=== PATIENT | female | born 1965 | race Caucasian/White ===

== ENCOUNTER → 2020-06-26 11:51 | Outpatient (BNVA) | payer SELFPAY | PROVIDERS: Family Provider Nurse Practitioner; PCP Nurse Practitioner; Visit Provider Nurse Practitioner | DX: I10 Essential (primary) hypertension (principal); J43.9 Emphysema, unspecified | CPT/HCPCS: 80053; 84443; 85025 ==

== ENCOUNTER → 2020-06-27 09:29 | Outpatient (BNVA) | payer SELFPAY | PROVIDERS: Family Provider Nurse Practitioner; PCP Nurse Practitioner; Visit Provider Nurse Practitioner | DX: R73.9 Hyperglycemia, unspecified (principal) | CPT/HCPCS: 83036 ==

== ENCOUNTER → 2020-07-02 10:24 | Outpatient (BNVA) | payer SELFPAY | PROVIDERS: Family Provider Nurse Practitioner; PCP Nurse Practitioner; Visit Provider Nurse Practitioner | DX: I10 Essential (primary) hypertension (principal); M25.551 Pain in right hip; M25.552 Pain in left hip; M54.5 Low back pain | CPT/HCPCS: 72100; 73523 ==

== ENCOUNTER 2020-10-08 11:34 | Inpatient (IN) | payer MEDICAID, SELFPAY ==
[2020-10-08] VITALS (15 sets, daily range): BP systolic 124–168; BP diastolic 78–100; PULSE 77–110; RESP 20–24; TEMP 36.4–37.3; O2SAT 86–94; BMI 40.6; BMI 40.8
--- NOTE | 2020-10-08 11:38 | W.ED.SOB ---
HPI - SOB/Dyspnea General: Chief Complaint: COVID symptoms Stated Complaint: POSSIBLE COVID/ SOB Time Seen by Provider: 10/08/20 11:37 History of Present Illness: HPI Narrative: Ms. Lawler is a 55-year-old lady with significant past medical history of diabetes, COPD, hypertension, hyperlipidemia who presents to the emergency department due to hypoxemia. Symptom onset was a few weeks ago gradual however she has recently experienced subacute worsening. She endorses generalized malaise, dry cough, shortness of breath, muscle aches, nausea but no vomiting, and generalized malaise. Her symptoms are worse with exertion but do not go with rest. She was seen at a clinic today however they called 911 because her oxygen saturation was 67% on room air. She denies prior oxygen use. She has a history of smoking but denies current smoking. Overall the course of symptoms has been worsening. The intensity is moderate to severe. She is not vaccinated against Covid. Home nebulizer treatments have not helped. No other new significant changes in health, exacerbating, or relieving factors identified. Review of Systems General: Reports: 10 or more systems reviewed and unremarkable except in HPI and below Narrative: CONSTITUTIONAL: See HPI EYES - denies pain, denies loss of vision NOSE - denies congestion or rhinorrhea. THROAT - denies sore throat or difficulty swallowing. CARDIOVASCULAR -see HPI RESPIRATORY -see HPI GASTROINTESTINAL - denies abdominal pain. See HPI GENITOURINARY - denies dysuria or urinary frequency MUSCULOSKELETAL- denies deformity. See HPI SKIN - denies rashes or new changed skin lesions NEUROLOGIC - denies focal weakness or sensory changes HEMATOLOGIC/LYMPHATIC - denies easy bruising or lymphadenopathy. PFS ED PFSH: Medical History COPD (chronic obstructive pulmonary disease) History of nicotine use Hyperlipemia, mixed Hypertension Surgical History History of hysterectomy Family History Other Diabetes Hypertension Denies family history of Cancer Stroke Social History Smoking and tobacco status: former smoker Second hand smoke exposure: No Smoking risk assessment/counseling performed?: No Alcohol intake: current Alcohol intake frequency: holidays/special occasions only Desire information about alcohol rehabilitation?: No Counseling given: No Desire information about substance/drug rehabilitation?: No Counseling given: No Adopted: No Caregiver/support person: No Lives independently: Yes Household members: spouse Housing: Manufactured/Mobile home Marital status: Number of children: 5 service: No Current occupational status: unemployed History of recent travel: No Current gender identity: Female Physical Exam Narrative: EXAM NARRATIVE: GENERAL/CONSTITUTIONAL -ill-appearing. No acute distress. Supplemental oxygen in place via mask Eyes - PERRL, no conjunctival injection ENMT - Atraumatic external nose and ears. Dry mucous membranes NECK - supple. trachea midline CARDIOVASCULAR - regular rate and rhythm. Peripheral pulses 2+ and equal RESPIRATORY -coarse breath sounds throughout with increased mild accessory muscle use. ABDOMEN/GI - Nontender, nondistended. No tenderness to percussion or evidence of peritonitis MSK - Extremities without obvious deformity or tenderness to palpation SKIN - Warm, Dry NEURO - alert and appropriately oriented. strength and sensation intact. Moves all extremities equally. PSYCH - Appropriate mood and affect Course ED course: - Patient was seen and evaluated by me at bedside - Patient placed on cardiac monitors, IV access obtained - Initial evaluation notable for ill appearance with respiratory distress -Symptom treatments ordered - Labs notable for no leukocytosis. ABG 7.41/50.4/56.2. Delta troponin negative. Patient is likely somewhat dehydrated though limited fluids in the context of COVID-19 - Imaging notable for opacities concerning for pneumonia - Patient had continued increased work of breathing and was placed on high flow oxygen - Upon serial reexamination after treatment the patient was mildly improved with high flow oxygen - Based on patient history, evaluation, labs, and imaging as interpreted the most likely cause of the patient's condition is COVID-19 infection - The results of ED evaluation were discussed with the patient including plan for admission due to requirement for level of care not available if discharged to prevent significant worsening/deterioration. -Hospitalist service contacted and agreed to admit the patient. - Patient was admitted without further deterioration or significant events. Vital Signs: Vital signs: Vital Signs Temperature 97.9 F 10/09/20 12:00 Pulse Rate 83 10/09/20 12:00 Respiratory Rate 24 H 10/09/20 12:00 Blood Pressure 127/83 10/09/20 12:00 Pulse Oximetry 89 L 10/09/20 12:00 MDM - SOB/Dyspnea Medical Records: Attestation: I reviewed the patient's medical records. Lab Data: Attestation: I reviewed the patient's lab results. Labs: Lab Results 10/08/20 10/08/20 10/08/20 Range/Units 12:07 12:10 12:15 WBC 6.7 (4.0-10.0) 10^3/ uL RBC 5.47 H (4.1-5.3) 10^6/u L Hgb 15.3 (11.5-15.3) g/dL Hct 49.3 H (37.0-47.0) % MCV 90.1 (81-99) fl MCH 28.0 (28.0-34.0) pg MCHC 31.0 (30.0-36.0) g/dL RDW 15.9 H (12.1-15.1) % Plt Count 235 (130-400) 10^3/c mm MPV 11.3 H (7.4-10.4) fL Neut % (Auto) 54.6 % Lymph % (Auto) 35.2 % [place] % (Auto) 7.1 % Eos % (Auto) 0.3 % Baso % (Auto) 0.6 % Neut # (Auto) 3.67 (1.8-7.7) 10^3/u L Lymph # (Auto) 2.4 (0.8-4.8) 10^3/u L [place] # (Auto) 0.5 (0.2-0.9) 10^3/u L Eos # (Auto) 0.0 (0.0-0.8) 10^3/u L Baso # (Auto) 0.0 (0.0-0.1) 10^3/u L Nucleated RBC % (a uto) 3.0 % Nucleated RBCs # 0.2 /100WBC Specimen Type Arterial Sample Site Brachial, left ABG pH 7.41 (7.35-7.45) ABG pCO2 50.4 H (35-45) mmHg ABG pO2 56.2 L (80.0-100.0) mmH g ABG HCO3 32.2 H (22-26) mmol/L ABG Base Excess 6.1 H (-2.0-2.0) mmol/ L Bteo Test Pos Hematocrit 47.5 H (37-47) % O2 Delivery Device Simple mask O2 Liters/Min 6.0 % Member Of [place] Legislative [place] ID Bd Sodium (136-145) mmol/L Potassium (3.5-5.1) mmol/L Chloride (98-107) mmol/L Carbon Dioxide (22-29) mmol/L Anion Gap (5-19) BUN (6-20) mg/dL Creatinine (0.5-0.9) mg/dL GFR Calculation (90-130) mL/min Glucose (65-115) mg/dL Calculated Osmolal ity (285-295) mOsm/k g Lactate (0.5-2.2) mmol/L Calcium (8.5-10.5) mg/dL Total Bilirubin (0.15-1.2) mg/dL AST (0-32) U/L ALT (0-33) U/L Alkaline Phosphata se (35-105) IU/L Troponin T Baselin e (0-10) ng/L C-Reactive Protein (0.0-4.9) mg/L NT-Pro-B Natriuret Pep (0-125) pg/mL Total Protein (6.6-8.7) g/dL Albumin (3.5-5.2) g/dL Globulin (1.3-4.6) g/dL Procalcitonin (0-0.5) ng/mL TSH (0.27-4.20) uIU/ mL Urine Color (Yellow) Urine Appearance (CLEAR) Urine pH (5-7) Ur Specific Gravit y (1.005-1.030) Urine Protein (Negative) Urine Glucose (UA) (Normal) Urine Ketones (Negative) Urine Blood (Negative) Urine Nitrate (Negative) Urine Bilirubin (Negative) Urine Urobilinogen (Negative) mg/dL Ur Leukocyte Arti ase (Negative) Urine RBC (0-2) /hpf Urine WBC (0-5) /hpf Ur Squamous Epith Cells (0-5) /hpf Amorphous Sediment Urine Bacteria (NONE) /hpf Hyaline Casts /lpf Fine Granular Cast s /lpf SARS-CoV-2 Ag (Rap id) Positive H (Negative) 10/08/20 10/08/20 10/08/20 Range/Units 12:15 12:15 12:15 WBC (4.0-10.0) 10^3/ uL RBC (4.1-5.3) 10^6/u L Hgb (11.5-15.3) g/dL Hct (37.0-47.0) % MCV (81-99) fl MCH (28.0-34.0) pg MCHC (30.0-36.0) g/dL RDW (12.1-15.1) % Plt Count (130-400) 10^3/c mm MPV (7.4-10.4) fL Neut % (Auto) % Lymph % (Auto) % [place] % (Auto) % Eos % (Auto) % Baso % (Auto) % Neut # (Auto) (1.8-7.7) 10^3/u L Lymph # (Auto) (0.8-4.8) 10^3/u L [place] # (Auto) (0.2-0.9) 10^3/u L Eos # (Auto) (0.0-0.8) 10^3/u L Baso # (Auto) (0.0-0.1) 10^3/u L Nucleated RBC % (a uto) % Nucleated RBCs # /100WBC Specimen Type Sample Site ABG pH (7.35-7.45) ABG pCO2 (35-45) mmHg ABG pO2 (80.0-100.0) mmH g ABG HCO3 (22-26) mmol/L ABG Base Excess (-2.0-2.0) mmol/ L Beto Test Hematocrit (37-47) % O2 Delivery Device O2 Liters/Min % Member Of [place] [employer] ID Sodium 139 (136-145) mmol/L Potassium 4.1 (3.5-5.1) mmol/L Chloride 95 L (98-107) mmol/L Carbon Dioxide 29 (22-29) mmol/L Anion Gap 19.1 H (5-19) BUN 20 (6-20) mg/dL Creatinine 0.7 (0.5-0.9) mg/dL GFR Calculation 87.2 L (90-130) mL/min Glucose 127 H (65-115) mg/dL Calculated Osmolal ity 292 (285-295) mOsm/k g Lactate 1.2 (0.5-2.2) mmol/L Calcium 8.3 L (8.5-10.5) mg/dL Total Bilirubin 0.6 (0.15-1.2) mg/dL AST 29 (0-32) U/L ALT 18 (0-33) U/L Alkaline Phosphata se 62 (35-105) IU/L Troponin T Baselin e 14 H (0-10) ng/L C-Reactive Protein 38.4 H (0.0-4.9) mg/L NT-Pro-B Natriuret Pep 207 H (0-125) pg/mL Total Protein 7.5 (6.6-8.7) g/dL Albumin 3.9 (3.5-5.2) g/dL Globulin 3.6 (1.3-4.6) g/dL Procalcitonin 0.11 (0-0.5) ng/mL TSH 1.11 (0.27-4.20) uIU/ mL Urine Color (Yellow) Urine Appearance (CLEAR) Urine pH (5-7) Ur Specific Gravit y (1.005-1.030) Urine Protein (Negative) Urine Glucose (UA) (Normal) Urine Ketones (Negative) Urine Blood (Negative) Urine Nitrate (Negative) Urine Bilirubin (Negative) Urine Urobilinogen (Negative) mg/dL Ur Leukocyte Arti ase (Negative) Urine RBC (0-2) /hpf Urine WBC (0-5) /hpf Ur Squamous Epith Cells (0-5) /hpf Amorphous Sediment Urine Bacteria (NONE) /hpf Hyaline Casts /lpf Fine Granular Cast s /lpf SARS-CoV-2 Ag (Rap id) (Negative) 10/08/20 Range/Units 12:45 WBC (4.0-10.0) 10^3/ uL RBC (4.1-5.3) 10^6/u L Hgb (11.5-15.3) g/dL Hct (37.0-47.0) % MCV (81-99) fl MCH (28.0-34.0) pg MCHC (30.0-36.0) g/dL RDW (12.1-15.1) % Plt Count (130-400) 10^3/c mm MPV (7.4-10.4) fL Neut % (Auto) % Lymph % (Auto) % [place] % (Auto) % Eos % (Auto) % Baso % (Auto) % Neut # (Auto) (1.8-7.7) 10^3/u L Lymph # (Auto) (0.8-4.8) 10^3/u L [place] # (Auto) (0.2-0.9) 10^3/u L Eos # (Auto) (0.0-0.8) 10^3/u L Baso # (Auto) (0.0-0.1) 10^3/u L Nucleated RBC % (a uto) % Nucleated RBCs # /100WBC Specimen Type Sample Site ABG pH (7.35-7.45) ABG pCO2 (35-45) mmHg ABG pO2 (80.0-100.0) mmH g ABG HCO3 (22-26) mmol/L ABG Base Excess (-2.0-2.0) mmol/ L Beto Test Hematocrit (37-47) % O2 Delivery Device O2 Liters/Min % Member Of The Legislative [employer] ID Sodium (136-145) mmol/L Potassium (3.5-5.1) mmol/L Chloride (98-107) mmol/L Carbon Dioxide (22-29) mmol/L Anion Gap (5-19) BUN (6-20) mg/dL Creatinine (0.5-0.9) mg/dL GFR Calculation (90-130) mL/min Glucose (65-115) mg/dL Calculated Osmolal ity (285-295) mOsm/k g Lactate (0.5-2.2) mmol/L Calcium (8.5-10.5) mg/dL Total Bilirubin (0.15-1.2) mg/dL AST (0-32) U/L ALT (0-33) U/L Alkaline Phosphata se (35-105) IU/L Troponin T Baselin e (0-10) ng/L C-Reactive Protein (0.0-4.9) mg/L NT-Pro-B Natriuret Pep (0-125) pg/mL Total Protein (6.6-8.7) g/dL Albumin (3.5-5.2) g/dL Globulin (1.3-4.6) g/dL Procalcitonin (0-0.5) ng/mL TSH (0.27-4.20) uIU/ mL Urine Color Dark yellow (Yellow) Urine Appearance Clear (CLEAR) Urine pH 6 (5-7) Ur Specific Gravit y 1.015 (1.005-1.030) Urine Protein 1+ H (Negative) Urine Glucose (UA) Norm (Normal) Urine Ketones 2+ H (Negative) Urine Blood Neg (Negative) Urine Nitrate Negative (Negative) Urine Bilirubin 1+ H (Negative) Urine Urobilinogen 4 H (Negative) mg/dL Ur Leukocyte Arti ase Negative (Negative) Urine RBC None (0-2) /hpf Urine WBC None (0-5) /hpf Ur Squamous Epith Cells 0-4 H (0-5) /hpf Amorphous Sediment Not Reportable Urine Bacteria 1+ H (NONE) /hpf Hyaline Casts 0-4 H /lpf Fine Granular Cast s 0-4 H /lpf SARS-CoV-2 Ag (Rap id) (Negative) EKG Data^: EKG 1: Attestation: I personally reviewed and interpreted this EKG as follows: EKG Interpretation Date: 10/08/20 EKG interpretation time: 12:00 Prior EKG tracings: not available for review Interpretation: Lead EKG shows a regular sinus rhythm at a rate of 96. KS interval 123, QRS duration 81, QTc 401. Normal axis. Interpretation: Sinus rhythm. Discharge Plan Discharge Patient Disposition: Admitted As Inpatient Admit Provider: Christopher Goddard Coding Level of Care Code ED Contact Center Assistant for g Kendra
--- NOTE | 2020-10-08 11:44 | XR_ITS ---
WS: [id number] Portable AP upright chest, 10/08/2020 Clinical Data: shortness of breath Comparison: None. Findings: No nodules, masses or effusions are seen. The heart is normal. The pulmonary vascularity is not increased. No pneumothorax is seen. There are bilateral patchy lower lobe opacities which could represent minimal pneumonia. The upper lobes are clear. There is a dextroscoliosis of the lower thor acic spine. XR/XR chest 1V portable [id number] Impression: Bilateral patchy lower lobe opacities which may represent pneumonia.
--- NOTE | 2020-10-08 11:46 | ECG_ITS ---
[facility] Test Date: 2020-10-08 Pat Name: Chula Lawler Department: Room: Gender: Female Screening Specialist: : [id number] Requested By: Jed Hernandez Order Number: [id number] Diamond MD: Zina Trinidad M.D. Measurements Intervals [place] Rate: 96 P: 12 ND: 123 QRS: 77 QRSD: 81 T: 79 QT: 348 QTc: 440 Interpretive Statements SINUS RHYTHM No previous ECG available for comparison Electronically Signed On 10-08-2020 19:37:31 CDT by Zina Trinidad M.D. [id number]
[2020-10-08 12:19] LABS: ABG PCO2 50.4 mmHg (35-45); ABG PH Result 7.41 (7.35-7.45); Arterial Blood Gas Hematocrit 47.5 % (37-47); Base Excess ABG 6.1 mmol/L (-2.0-2.0); Blood Gas Allen Test Pos; Blood Gas Sample Type Arterial; HCO3 ABG 32.2 mmol/L (22-26); PO2 ABG 56.2 mmHg (80.0-100.0)
[2020-10-08 12:20] LABS: Blood Gas Operator Identificat BD; Blood Gas Sample Site Brachial, left; Oxygen Device SIMPLE MASK
[2020-10-08 12:26] LABS: Basophils % 0.6 %; Eosinophils % 0.3 %; Hematocrit 49.3 % (37.0-47.0); Hemoglobin 15.3 g/dL (11.5-15.3); Lymphocytes # 2.4 10^3/uL (0.8-4.8); Lymphocytes % 35.2 %; Mean Corpuscular Volume 90.1 fl (81-99); Mean Platelet Volume 11.3 fL (7.4-10.4); Monocytes # 0.5 10^3/uL (0.2-0.9); Monocytes % 7.1 %; Neutrophils # 3.67 10^3/uL (1.8-7.7); Neutrophils % 54.6 %; Nucleated Red Blood Cells # 0.2 /100WBC; Platelet Count 235 10^3/cmm (130-400); Red Blood Count 5.47 10^6/uL (4.1-5.3); Red Cell Distribution Width 15.9 % (12.1-15.1); White Blood Count 6.7 10^3/uL (4.0-10.0)
[2020-10-08 12:40] LABS: Lactate (Lactic Acid level) 1.2 mmol/L (0.5-2.2)
[2020-10-08 12:41] LABS: SARS Covid-2 Antigen Positive (Negative)
[2020-10-08 13:00] LABS: Troponin(5th) Baseline 14 ng/L (0-10)
[2020-10-08 13:02] LABS: NT Pro B Type Natriuretic Pept 207 pg/mL (0-125); Procalcitonin 0.11 ng/mL (0-0.5); Thyroid Stimulating Hormone 1.11 uIU/mL (0.27-4.20)
[2020-10-08 13:09] LABS: Slide Review Slide Review Perform
[2020-10-08 13:16] LABS: Protein Urine 1+ (Negative); Specific Gravity, Urine 1.015 (1.005-1.030); Urine Appearance Clear (CLEAR); Urine Color Dark Yellow (Yellow); pH Urine 6 (5-7)
[2020-10-08 13:17] LABS: Add Urine Microscopic? YES; Bilirubin Urine 1+ (Negative); Blood Urine Neg (Negative); Glucose Urine UA Norm (Normal); Ketones Urine 2+ (Negative); Leukocyte Esterase Urine Negative (Negative); Nitrate Urine Negative (Negative); Urobilinogen Urine 4 mg/dL (Negative)
[2020-10-08 13:18] LABS: Bacteria Urine 1+ /hpf; Squamous Epithelial Cell Urine 0-4 /hpf (0-5)
[2020-10-08 13:19] LABS: Add Urine Culture? No; Fine Granular Casts Urine 0-4 /lpf; Hyaline Casts Urine 0-4 /lpf
[2020-10-08 13:40] LABS: Alanine Aminotransferase 18 U/L (0-33); Albumin Level 3.9 g/dL (3.5-5.2); Alkaline Phosphatase 62 IU/L (35-105); Anion Gap 19.1 (5-19); Aspartate Amino Transferase 29 U/L (0-32); Blood Urea Nitrogen 20 mg/dL (6-20); C Reactive Protein 38.4 mg/L (0.0-4.9); Calcium 8.3 mg/dL (8.5-10.5); Carbon Dioxide 29 mmol/L (22-29); Chloride 95 mmol/L (98-107); Globulin 3.6 g/dL (1.3-4.6); Glomerular Filtration Rate 87.2 mL/min (90-130); Glucose 127 mg/dL (65-115); Osmolality Calculated 292 mOsm/kg (285-295); Potassium 4.1 mmol/L (3.5-5.1); Sodium 139 mmol/L (136-145); Total Bilirubin 0.6 mg/dL (0.15-1.2); Total Protein 7.5 g/dL (6.6-8.7)
--- NOTE | 2020-10-08 14:25 | PC.NURSE ---
PATIENT IN ROOM RESTING IN BED. PATIENT REQUESTED BLANKET AND FOOD. NO FURTHER NEEDS AT THIS TIME.
[2020-10-08] MEDS: albuterol 8 gm MDI 4 PUFF INHALATION (14:30)
[2020-10-08 15:13] LABS: Troponin 5 2HR 11.98 ng/L (0-10)
[2020-10-08 15:16] LABS: Troponin 5 2HR Delta -2.02 ABS# (0-10)
--- NOTE | 2020-10-08 16:58 | P.HP_ITS ---
Providers/Chief Complaint Primary Care Provider: CRISTÓBAL Quiroga Chief Complaint: POSSIBLE COVID/ SOB History of Present Illness Chula Lawler is a 55 year old female with PMH of DM COPD, hypertension, hyperlipidemia came in with c/o worsening shortness of breath,dry cough, muscle aches, nausea , generalized malaise. Symptom began few weeks ago and has worsened since then. She was seen at a clinic today however they called 911 because her oxygen saturation was 67% on room air. Upon arrival in the ER She was worked up for above mention complain. Imaging Studies: Xray chest : Bilateral patchy lower lobe opacities Pertinent labs : Rapid COVID Antigen :Positive Review of Systems Const: Denies: change in appetite Card: Denies: palpitations, edema or swelling of feet/ankles GI: Denies: abdominal pain, nausea, vomiting, diarrhea or constipation : Denies: flank pain Musc: Denies: back pain, extremity pain or extremity swelling Neuro: Denies: headache(s), difficulty walking or confusion Medications/Allergies Home Medications Medication Instructions Recorded Confirmed Last Taken Type albuterol sulfate 90 mcg/actuation 2 puff INHALATION Q6H PRN #8.5 gm 06/26/20 10/08/20 10/08/20 Rx aerosol inhaler lisinopril 10 1 tab PO DAILY #30 tab MDD SEE 06/26/20 10/08/20 Unknown Rx mg-hydrochlorothiazide 12.5 mg PHARMACY COMMENT tablet metoprolol succinate 25 mg 25 mg PO DAILY #30 tab 06/26/20 10/08/20 Unknown Rx tablet,extended release 24 hr metformin 500 mg tablet,extended 500 mg PO BID #60 tab 07/10/20 10/08/20 Unknown Rx release 24 hr amitriptyline 10 mg tablet 10 - 30 mg PO DAILY #30 tab 10/04/20 10/08/20 Unknown Rx semaglutide [Ozempic] 0.25 mg SUBCUT Q7D 10/08/20 10/08/20 Unknown History Allergies Allergy/AdvReac Type Severity Reaction Status Date / Time No Known Allergies Allergy Unverified 10/08/20 11:40 PFSH Acute PFSH: Medical History COPD (chronic obstructive pulmonary disease) History of nicotine use Hyperlipemia, mixed Hypertension Surgical History History of hysterectomy Family History Other Diabetes Hypertension Denies family history of Cancer Stroke Social History Smoking and tobacco status: former smoker Second hand smoke exposure: No Smoking risk assessment/counseling performed?: No Alcohol intake: current Alcohol intake frequency: holidays/special occasions only Desire information about alcohol rehabilitation?: No Counseling given: No Desire information about substance/drug rehabilitation?: No Counseling given: No Adopted: No Caregiver/support person: No Lives independently: Yes Household members: spouse Housing: Manufactured/Mobile home Marital status: Number of children: 5 service: No Current occupational status: unemployed History of recent travel: No Current gender identity: Female Vitals/I&O/Wt Last Vital Signs Temp 99.1 F 10/08/20 11:50 Pulse 87 10/08/20 15:18 Resp 22 H 10/08/20 13:53 BP 137/97 10/08/20 15:18 Pulse Ox 90 10/08/20 15:18 Weight last 48 hrs Weight 114.305 kg Physical Exam Const: COMMON NORMALS: patient oriented x3 HENMT: COMMON NORMALS: normocephalic and atraumatic HEAD & SCALP: normocephalic and atraumatic Resp: OTHER: Diminished air entry bilaterally Cardio: COMMON NORMALS: regular rate, regular rhythm, S1 normal heart sound present, S2 normal heart sound present, No gallops present (Cardio), No murmurs present (Cardio), No rub (Cardio) and Peripheral pulses 2+ throughout RATE: regular rate RHYTHM: regular rhythm HEART SOUNDS: S1 normal heart sound present and S2 normal heart sound present PERIPHERAL PULSES: Peripheral pulses 2+ throughout GI: COMMON NORMALS: Normal to inspection, nondistended, normoactive bowel sounds present, Soft to palpation, non-tender, No hepatosplenomegaly present and no masses AUSCULTATION: Yes normoactive bowel sounds PALPATION: Yes Soft to palpation and Yes No hepatosplenomegaly present RECTAL EXAM: deferred Extremity: COMMON NORMALS: no clubbing, cyanosis or edema and no pedal edema Neuro: COMMON NORMALS: patient oriented x3 Data : 10/09/20 06:24 10/09/20 06:24 A&P Assessment and plan (1) Pneumonia due to COVID-19 virus: Currently on COVID Protocol. D -Dimer ESR CRP LDH Ferritin Monitor ABG Monitor Xray chest Dexamethasone 6mg I.V Daily Zinc Vitamin c Albuterol Inhaler Advair Inhaler Certriaxone 1gm I.V Daily Azithromycin 500 mg I.V Daily Incentive Spirometry Flutter Valve Supplemental oxygen Status: Acute (2) Diabetes: LDSSI Monitor FSG Status: Acute (3) Hypertension: Status: Chronic (4) COPD (chronic obstructive pulmonary disease): Status: Chronic Additional A&P Information DVT PPX: Lovenox 40 mg sc daily Code Status : Full code Attestations Medical Necessity Statement*: Patient needs to be in hospital for the management of COVID PNA.Anticipated LOS Greater then 2 midnights. Coding Level of Care Code Acute Adoption Services Manager for Chg Fwd Diagnoses Pneumonia due to COVID-19 virus U07.1; J12.82 Diabetes E11.9 Hypertension I10 COPD (chronic obstructive pulmonary disease) J44.9
--- NOTE | 2020-10-08 17:52 | PC.NURSE ---
PATIENT OXYGEN SATURATION PERIODICALLY DROPS DUE TO PATIENT REMOVING HEATED HIGH FRANK NASAL CANNULA. PATIENT DROPS TO 84% WHEN IT IS REMOVED. PATIENT EDUCATION GIVEN TO WEAR NASAL CANNULA APPROPRIATELY. PATIENT HAS NO FURTHER NEEDS AT THIS TIME.
[2020-10-08] MEDS: albuterol 8 gm MDI 1 PUFF INHALATION (21:30)
[2020-10-08] MEDS: dexamethasone 4 mg/mL INJ 6 MG IVP (21:40)
[2020-10-08] MEDS: ondansetron 2 mg/ML SDV 2 mL 4 MG IVP (21:40)
[2020-10-08] MEDS: acetaminophen 325 mg Tablet 650 MG PO (21:41)
[2020-10-08] MEDS: remdesivir 200 MG in sodium chloride 0.9% (100 ml) 100 ML 100 MG IV (21:41)
[2020-10-08] MEDS: ascorbic acid 500 mg Tablet 1000 MG PO (21:41)
[2020-10-08 22:30] LABS: Glucose Point of Care 201 mg/dL (70-110)
[2020-10-08] MEDS: cefTRIAXone 1,000 MG in sodium chloride 0.9% (plus) 50 ML 100 MG IV (22:48)
[2020-10-08] MEDS: azithromycin 500 MG in sodium chloride 0.9% 250 ML 250 MG IV (23:48)
[2020-10-09] VITALS (16 sets, daily range): BP systolic 123–153; BP diastolic 82–98; PULSE 63–90; RESP 17–24; TEMP 36.4–37; O2SAT 89–100; BMI 40.8
[2020-10-09] MEDS: albuterol 8 gm MDI 1 PUFF INHALATION ×5 (03:30→20:41)
[2020-10-09 06:17] LABS: Glucose Point of Care 180 mg/dL (70-110)
[2020-10-09 08:03] LABS: Basophils % 0.4 %; Eosinophils % 0.2 %; Hemoglobin 14.1 g/dL (11.5-15.3); Lymphocytes # 1.3 10^3/uL (0.8-4.8); Lymphocytes % 25.5 %; Mean Corpuscular HGB Conc 30.7 g/dL (30.0-36.0); Mean Corpuscular Hemoglobin 27.8 pg (28.0-34.0); Mean Corpuscular Volume 90.6 fl (81-99); Mean Platelet Volume 11.2 fL (7.4-10.4); Monocytes # 0.3 10^3/uL (0.2-0.9); Monocytes % 5.5 %; Neutrophils # 3.25 10^3/uL (1.8-7.7); Neutrophils % 65.8 %; Nucleated Red Blood Cells # 0.1 /100WBC; Nucleated Red Blood Cells % 1.2 %; Platelet Count 252 10^3/cmm (130-400); Red Blood Count 5.08 10^6/uL (4.1-5.3); Red Cell Distribution Width 15.9 % (12.1-15.1); White Blood Count 4.9 10^3/uL (4.0-10.0)
[2020-10-09 08:16] LABS: INR 1.06 (0.8-1.2)
[2020-10-09 08:18] LABS: Partial Thromboplastin Time 27.4 SECONDS (23.9-36.7)
[2020-10-09] MEDS: ascorbic acid 500 mg Tablet 1000 MG PO ×2 (08:24→17:10)
[2020-10-09] MEDS: cholecalciferol (vitamin D3) 1,000 unit Tablet 2000 UNIT PO (08:24)
[2020-10-09] MEDS: metoprolol succinate ER (24 HR) 25 mg Tablet PO (08:25)
[2020-10-09] MEDS: zinc gluconate 50 mg Tablet PO (08:25)
[2020-10-09] MEDS: hydroCHLOROthiazide 25 mg Tablet 12.5 MG PO (08:26)
[2020-10-09] MEDS: lisinopril 10 mg Tablet PO (08:26)
[2020-10-09] MEDS: enoxaparin 40 mg/0.4 mL Syringe SUBCUT (08:27)
[2020-10-09 08:33] LABS: NT Pro B Type Natriuretic Pept 73 pg/mL (0-125); Procalcitonin 0.08 ng/mL (0-0.5)
[2020-10-09 08:34] LABS: Alanine Aminotransferase 16 U/L (0-33); Albumin Level 3.4 g/dL (3.5-5.2); Alkaline Phosphatase 56 IU/L (35-105); Anion Gap 13.9 (5-19); Aspartate Amino Transferase 24 U/L (0-32); Blood Urea Nitrogen 17 mg/dL (6-20); Calcium 8.4 mg/dL (8.5-10.5); Carbon Dioxide 32 mmol/L (22-29); Chloride 96 mmol/L (98-107); Globulin 3.9 g/dL (1.3-4.6); Glomerular Filtration Rate 128.6 mL/min (90-130); Glucose 150 mg/dL (65-115); Magnesium 2.2 mg/dL (1.7-2.3); Osmolality Calculated 290 mOsm/kg (285-295); Potassium 3.9 mmol/L (3.5-5.1); Sodium 138 mmol/L (136-145); Thyroid Stimulating Hormone 0.32 uIU/mL (0.27-4.20); Total Bilirubin 0.4 mg/dL (0.15-1.2); Total Protein 7.3 g/dL (6.6-8.7)
[2020-10-09 08:35] LABS: Slide Review Slide Review Perform
[2020-10-09 11:39] LABS: Glucose Point of Care 176 mg/dL (70-110)
--- NOTE | 2020-10-09 14:51 | P.PN_ITS ---
Subjective Subjective: Interval history: Patient was seen and examined this morning , continues to require high supplemental oxygen. Overall she is comfortable with supplemental oxygen use. Medications: Reviewed: Yes Vitals/I&O/Wt Last Vital Signs Temp 97.9 F 10/09/20 12:00 Pulse 83 10/09/20 12:00 Resp 24 H 10/09/20 12:00 BP 127/83 10/09/20 12:00 Pulse Ox 89 L 10/09/20 12:00 10/08/20 10/09/20 10/09/20 22:59 06:59 14:59 Intake Total 150 / 150 250 / 400 250 / 250 Output Total 250 / 250 Balance 150 / 150 250 / 400 0 / 0 Weight last 48 hrs Weight 114.872 kg Weight 114.816 kg Weight 114.305 kg Physical Exam Const: COMMON NORMALS: patient oriented x3 HENMT: COMMON NORMALS: normocephalic and atraumatic HEAD & SCALP: normocephalic and atraumatic Resp: OTHER: Diminished air entry bilaterally Cardio: COMMON NORMALS: regular rate, regular rhythm, S1 normal heart sound present, S2 normal heart sound present, No gallops present (Cardio), No murmurs present (Cardio), No rub (Cardio) and Peripheral pulses 2+ throughout RATE: regular rate RHYTHM: regular rhythm HEART SOUNDS: S1 normal heart sound present and S2 normal heart sound present PERIPHERAL PULSES: Peripheral pulses 2+ throughout GI: COMMON NORMALS: Normal to inspection, nondistended, normoactive bowel sounds present, Soft to palpation, non-tender, No hepatosplenomegaly present and no masses AUSCULTATION: Yes normoactive bowel sounds PALPATION: Yes Soft to palpation and Yes No hepatosplenomegaly present RECTAL EXAM: deferred Extremity: COMMON NORMALS: no clubbing, cyanosis or edema and no pedal edema Neuro: COMMON NORMALS: patient oriented x3 Data : 10/09/20 06:24 10/09/20 06:24 A&P Assessment and plan (1) Pneumonia due to COVID-19 virus: Acute hypoxic respiratory failure secondary to Covid pneumonia: Currently on COVID Protocol. D -Dimer ESR CRP LDH Ferritin Monitor ABG Monitor Xray chest Dexamethasone 6mg I.V Daily Remdesivir 100 MG daily for 5 days Zinc Vitamin c Albuterol Inhaler Advair Inhaler Certriaxone 1gm I.V Daily Azithromycin 500 mg I.V Daily Incentive Spirometry Flutter Valve Supplemental oxygen Status: Acute (2) Diabetes: LDSSI Monitor FSG Carbohydrate consistent diet Status: Acute (3) Hypertension: Lisinopril 10 mg p.o. Hydrochlorothiazide 12.5 mg p.o. daily Metoprolol succinate 25 mg p.o. daily Blood pressure well controlled Status: Chronic (4) COPD (chronic obstructive pulmonary disease): Status: Chronic Additional A&P Information DVT PPX: Lovenox 40 mg sc daily Code Status : Full code Attestations Medical Necessity Statement*: Patient needs to be in hospital for management of Covid pneumonia. Coding Level of Care Code Acute Break Out Worker for g Fwd Exam Detailed Diagnoses Pneumonia due to COVID-19 virus U07.1; J12.82 Diabetes E11.9 Hypertension I10 COPD (chronic obstructive pulmonary disease) J44.9
[2020-10-09 16:18] LABS: Coronavirus Test Green County Detected
[2020-10-09] MEDS: azithromycin 500 MG in sodium chloride 0.9% 250 ML 250 MG IV (17:04)
[2020-10-09] MEDS: dexamethasone 4 mg/mL INJ 6 MG IVP (17:08)
[2020-10-09 17:38] LABS: Glucose Point of Care 244 mg/dL (70-110)
[2020-10-09] MEDS: remdesivir 100 MG in sodium chloride 0.9% (100 ml) 100 ML IV (18:48)
[2020-10-09] MEDS: acetaminophen 325 mg Tablet 650 MG PO (19:56)
[2020-10-09] MEDS: cefTRIAXone 1,000 MG in sodium chloride 0.9% (plus) 50 ML 100 MG IV (19:57)
[2020-10-10] VITALS (16 sets, daily range): BP systolic 109–149; BP diastolic 58–93; PULSE 65–76; RESP 16–24; TEMP 36.1–36.6; O2SAT 87–98
[2020-10-10] MEDS: albuterol 8 gm MDI 1 PUFF INHALATION ×6 (00:20→19:30)
[2020-10-10 06:27] LABS: Glucose Point of Care 191 mg/dL (70-110)
--- NOTE | 2020-10-10 06:45 | PC.RESP ---
Respiratory Care Note: Pt to Receive MDI Albuterol MDI 1 Puff Q4 as ordered. Treatments were given at 0020 and 0425. MAR would not allow me to document Albuterol given.
[2020-10-10] MEDS: ascorbic acid 500 mg Tablet 1000 MG PO ×2 (08:50→18:07)
[2020-10-10] MEDS: lisinopril 10 mg Tablet PO (08:50)
[2020-10-10] MEDS: metoprolol succinate ER (24 HR) 25 mg Tablet PO (08:50)
[2020-10-10] MEDS: enoxaparin 40 mg/0.4 mL Syringe SUBCUT (08:50)
[2020-10-10] MEDS: cholecalciferol (vitamin D3) 1,000 unit Tablet 2000 UNIT PO (08:50)
[2020-10-10] MEDS: hydroCHLOROthiazide 25 mg Tablet 12.5 MG PO (08:50)
[2020-10-10] MEDS: zinc gluconate 50 mg Tablet PO (08:50)
[2020-10-10] MEDS: acetaminophen 325 mg Tablet 650 MG PO (08:51)
--- NOTE | 2020-10-10 10:47 | P.PN_ITS ---
Subjective Subjective: Interval history: Patient was seen and examined this morning , continues to require high supplemental oxygen. She was complaining of backache.Has h/o chronic back pain. Medications: Reviewed: Yes Vitals/I&O/Wt Last Vital Signs Temp 97.6 F 10/10/20 07:36 Pulse 75 10/10/20 08:03 Resp 18 10/10/20 07:58 BP 146/93 10/10/20 07:36 Pulse Ox 90 10/10/20 07:58 10/09/20 10/10/20 10/10/20 22:59 06:59 14:59 Intake Total 640 / 890 Output Total 400 / 650 300 / 950 Balance 240 / 240 -300 / -60 Weight last 48 hrs Weight 115.439 kg Weight 114.872 kg Weight 114.816 kg Weight 114.305 kg Physical Exam Const: COMMON NORMALS: patient oriented x3 HENMT: COMMON NORMALS: normocephalic and atraumatic HEAD & SCALP: normocephalic and atraumatic Resp: OTHER: Diminished air entry bilaterally, moderate respiratory distress with exertion. Cardio: COMMON NORMALS: regular rate, regular rhythm, S1 normal heart sound present, S2 normal heart sound present, No gallops present (Cardio), No murmurs present (Cardio), No rub (Cardio) and Peripheral pulses 2+ throughout RATE: regular rate RHYTHM: regular rhythm HEART SOUNDS: S1 normal heart sound present and S2 normal heart sound present PERIPHERAL PULSES: Peripheral pulses 2+ throughout GI: COMMON NORMALS: Normal to inspection, nondistended, normoactive bowel sounds present, Soft to palpation, non-tender, No hepatosplenomegaly present and no masses AUSCULTATION: Yes normoactive bowel sounds PALPATION: Yes Soft to palpation and Yes No hepatosplenomegaly present RECTAL EXAM: deferred Extremity: COMMON NORMALS: no clubbing, cyanosis or edema and no pedal edema Neuro: COMMON NORMALS: patient oriented x3 Data : 10/09/20 06:24 10/09/20 06:24 A&P Assessment and plan (1) Pneumonia due to COVID-19 virus: Acute hypoxic respiratory failure secondary to Covid pneumonia: Currently on COVID Protocol. D -Dimer ESR CRP LDH Ferritin Monitor ABG Monitor Xray chest Dexamethasone 6mg I.V Daily Remdesivir 100 MG daily for 5 days Zinc Vitamin c Albuterol Inhaler Advair Inhaler Certriaxone 1gm I.V Daily Azithromycin 500 mg I.V Daily Incentive Spirometry Flutter Valve Supplemental oxygen Status: Acute (2) Diabetes: LDSSI Monitor FSG Carbohydrate consistent diet Status: Acute (3) Hypertension: Lisinopril 10 mg p.o. Hydrochlorothiazide 12.5 mg p.o. daily Metoprolol succinate 25 mg p.o. daily Blood pressure well controlled Status: Chronic (4) COPD (chronic obstructive pulmonary disease): Status: Chronic (5) Chronic back pain: Status: Acute Additional A&P Information DVT PPX: Lovenox 40 mg sc daily Code Status : Full code Attestations Medical Necessity Statement*: Patient needs to be in hospital for the management of COVID PNA Coding Level of Care Code Acute Outside Sales Inspector for [facility] Fwd Diagnoses Pneumonia due to COVID-19 virus U07.1; J12.82 Diabetes E11.9 Hypertension I10 COPD (chronic obstructive pulmonary disease) J44.9 Chronic back pain M54.9; G89.29
[2020-10-10] MEDS: amitriptyline 25 mg Tablet PO (12:18)
[2020-10-10] MEDS: oxyCODONE-APAP 5-325 mg Tablet 1 TAB PO ×2 (12:18→18:08)
[2020-10-10 12:27] LABS: Basophils % 0.3 %; Hematocrit 46.7 % (37.0-47.0); Hemoglobin 14.5 g/dL (11.5-15.3); Lymphocytes % 32.8 %; Mean Corpuscular Hemoglobin 28.3 pg (28.0-34.0); Mean Platelet Volume 11.4 fL (7.4-10.4); Monocytes # 0.6 10^3/uL (0.2-0.9); Neutrophils # 3.39 10^3/uL (1.8-7.7); Neutrophils % 55.9 %; Nucleated Red Blood Cells % 0.3 %; Platelet Count 298 10^3/cmm (130-400); Red Blood Count 5.13 10^6/uL (4.1-5.3); Red Cell Distribution Width 16.4 % (12.1-15.1); White Blood Count 6.1 10^3/uL (4.0-10.0)
[2020-10-10 13:33] LABS: D Dimer 1.14 ug/mIFEU (0-0.59)
[2020-10-10 13:53] LABS: Erythrocyte Sedimentation Rate 32 mm/hr (0-15)
--- NOTE | 2020-10-10 15:21 | PC.CHAP ---
Pastoral Care Encounter/Spiritual Assessment Type of Contact [] Declined perl programmer visit [] Patient/Family/Request visit [] Outpatient visit [XX] Follow-up visit [] Physician referral [] Code/Alert [] Routine visit [] Staff referral [] Actively dying [] Patient sleeping [] Family support [] [] Out of room [] Palliative care [] [] Receiving care in room [] Pre-surgical visit [] Trauma [] Long length of stay [] ICU visit [XX] Other:ISOLATION Relational/Emotional Strength [] Patient feels connected with others/family/visitors/staff [] Distress [] Loneliness/isolation [] Abandonment Spirituality of Patient [] Person of Mari [] Attends Anabaptism of their [place] [] Believes in Prayer [] Reads Bible or Restorationist materials [] There are Spiritual issues to be addressed Twister Hand Interventions [] Prayer [] Active listening [] Non-anxious presence [] Spiritual/emotional support [] Crisis/trauma care [] Spiritual counseling [] Bereavement support [] Provided bereavement packet [] Provided Bible/devotional materials [] Provided toy/stuffed animal, coloring book to patient or family member [] Provided Communion [] Anointing/[place] [] Salvation [] Completed spiritual assessment [] Other: Impact on Illness or Injury [] Angry [] Fearful [] Anxious [] Often cries [] Exhaustion [] Unable to work [] Unable to attend congregation [] Unable to walk/stand [] Unable to read [] Unable to drive [] Unable to eat/drink [] Unable to sleep [] Unable to be with family [] Patient intubated [] Other: Summary Time spent with patient
[2020-10-10 15:54] LABS: Slide Review Slide Review Perform
[2020-10-10] MEDS: remdesivir 100 MG in sodium chloride 0.9% (100 ml) 100 ML IV (18:07)
[2020-10-10] MEDS: dexamethasone 4 mg/mL INJ 6 MG IVP (18:07)
[2020-10-10] MEDS: azithromycin 500 MG in sodium chloride 0.9% 250 ML 250 MG IV (19:30)
[2020-10-10] MEDS: cefTRIAXone 1,000 MG in sodium chloride 0.9% (plus) 50 ML 100 MG IV (22:15)
[2020-10-11] VITALS (15 sets, daily range): BP systolic 100–139; BP diastolic 65–97; PULSE 56–91; RESP 16–21; TEMP 36.5–36.9; O2SAT 90–97
[2020-10-11] MEDS: albuterol 8 gm MDI 1 PUFF INHALATION ×7 (00:05→21:40)
[2020-10-11 07:56] LABS: Basophils % 0.2 %; Hemoglobin 12.9 g/dL (11.5-15.3); Lymphocytes # 1.3 10^3/uL (0.8-4.8); Lymphocytes % 23.8 %; Mean Corpuscular HGB Conc 30.7 g/dL (30.0-36.0); Mean Corpuscular Hemoglobin 28.3 pg (28.0-34.0); Mean Corpuscular Volume 92.1 fl (81-99); Mean Platelet Volume 11.3 fL (7.4-10.4); Monocytes # 0.5 10^3/uL (0.2-0.9); Monocytes % 9.3 %; Neutrophils # 3.62 10^3/uL (1.8-7.7); Neutrophils % 65.6 %; Nucleated Red Blood Cells % 0 %; Platelet Count 270 10^3/cmm (130-400); Red Blood Count 4.56 10^6/uL (4.1-5.3); Red Cell Distribution Width 16.4 % (12.1-15.1); White Blood Count 5.5 10^3/uL (4.0-10.0)
[2020-10-11 08:13] LABS: D Dimer 0.95 ug/mIFEU (0-0.59)
[2020-10-11 08:19] LABS: Alanine Aminotransferase 15 U/L (0-33); Albumin Level 3.2 g/dL (3.5-5.2); Alkaline Phosphatase 44 IU/L (35-105); Blood Urea Nitrogen 21 mg/dL (6-20); C Reactive Protein 7.7 mg/L (0.0-4.9); Calcium 8.8 mg/dL (8.5-10.5); Carbon Dioxide 32 mmol/L (22-29); Chloride 95 mmol/L (98-107); Ferritin 120 ng/mL (15-150); Globulin 3.4 g/dL (1.3-4.6); Glomerular Filtration Rate 128.6 mL/min (90-130); Glucose 254 mg/dL (65-115); Magnesium 1.9 mg/dL (1.7-2.3); Osmolality Calculated 296 mOsm/kg (285-295); Sodium 137 mmol/L (136-145); Total Bilirubin 0.3 mg/dL (0.15-1.2); Total Protein 6.6 g/dL (6.6-8.7)
[2020-10-11 08:23] LABS: Anion Gap 14.1 (5-19)
[2020-10-11 08:24] LABS: Aspartate Amino Transferase 17 U/L (0-32); Potassium 4.1 mmol/L (3.5-5.1)
[2020-10-11 08:25] LABS: Lactate Dehydrogenase 266 U/L (135-214)
[2020-10-11] MEDS: enoxaparin 40 mg/0.4 mL Syringe SUBCUT (08:25)
[2020-10-11] MEDS: amitriptyline 25 mg Tablet PO (08:25)
[2020-10-11] MEDS: zinc gluconate 50 mg Tablet PO (08:26)
[2020-10-11] MEDS: lisinopril 10 mg Tablet PO (08:26)
[2020-10-11] MEDS: metoprolol succinate ER (24 HR) 25 mg Tablet PO (08:26)
[2020-10-11] MEDS: hydroCHLOROthiazide 25 mg Tablet 12.5 MG PO (08:26)
[2020-10-11] MEDS: ascorbic acid 500 mg Tablet 1000 MG PO ×2 (08:26→17:20)
[2020-10-11] MEDS: cholecalciferol (vitamin D3) 1,000 unit Tablet 2000 UNIT PO (08:26)
[2020-10-11 09:27] LABS: Erythrocyte Sedimentation Rate 24 mm/hr (0-15)
[2020-10-11] MEDS: oxyCODONE-APAP 5-325 mg Tablet 1 TAB PO ×2 (11:36→17:20)
--- NOTE | 2020-10-11 14:31 | PM.PN ---
Subjective Subjective: Interval history: Patient was seen and examined this morning.Currently she is doing fine supplemental oxygen requirement is going down.She fells better, SOB has improved. Medications: Reviewed: Yes Vitals/I&O/Wt Last Vital Signs Temp 98.4 F 10/11/20 11:35 Pulse 59 L 10/11/20 14:00 Resp 18 10/11/20 11:36 BP 113/71 10/11/20 11:35 Pulse Ox 97 10/11/20 11:35 10/10/20 10/11/20 10/11/20 22:59 06:59 14:59 Intake Total 350 / 350 50 / 400 240 / 240 Balance 350 / 350 50 / 400 240 / 240 Weight last 48 hrs Weight 115.439 kg Physical Exam Const: COMMON NORMALS: patient oriented x3 HENMT: COMMON NORMALS: normocephalic and atraumatic HEAD & SCALP: normocephalic and atraumatic Resp: OTHER: Diminished air entry bilaterally Cardio: COMMON NORMALS: regular rate, regular rhythm, S1 normal heart sound present, S2 normal heart sound present, No gallops present (Cardio), No murmurs present (Cardio), No rub (Cardio) and Peripheral pulses 2+ throughout RATE: regular rate RHYTHM: regular rhythm HEART SOUNDS: S1 normal heart sound present and S2 normal heart sound present PERIPHERAL PULSES: Peripheral pulses 2+ throughout GI: COMMON NORMALS: Normal to inspection, nondistended, normoactive bowel sounds present, Soft to palpation, non-tender, No hepatosplenomegaly present and no masses AUSCULTATION: Yes normoactive bowel sounds PALPATION: Yes Soft to palpation and Yes No hepatosplenomegaly present RECTAL EXAM: deferred Extremity: COMMON NORMALS: no clubbing, cyanosis or edema and no pedal edema Neuro: COMMON NORMALS: patient oriented x3 Data : 10/11/20 07:08 10/11/20 07:08 A&P Assessment and plan (1) Pneumonia due to COVID-19 virus: Acute hypoxic respiratory failure secondary to Covid pneumonia: Currently on COVID Protocol. D -Dimer ESR CRP LDH Ferritin Monitor ABG Monitor Xray chest Dexamethasone 6mg I.V Daily Remdesivir 100 MG daily for 5 days Zinc Vitamin c Albuterol Inhaler Advair Inhaler Certriaxone 1gm I.V Daily Azithromycin 500 mg I.V Daily Incentive Spirometry Flutter Valve Supplemental oxygen Status: Acute (2) Diabetes: LDSSI Monitor FSG Carbohydrate consistent diet Status: Acute (3) Hypertension: Lisinopril 10 mg p.o. Hydrochlorothiazide 12.5 mg p.o. daily Metoprolol succinate 25 mg p.o. daily Blood pressure well controlled Status: Chronic (4) COPD (chronic obstructive pulmonary disease): Status: Chronic (5) Chronic back pain: Status: Acute Additional A&P Information DVT PPX: Lovenox 40 mg sc daily Code Status : Full code Attestations Medical Necessity Statement*: Patient needs to be in hospital for the management of COVID PNA Coding Level of Care Code Acute Utilization Management Manager for [facility] Fwd Diagnoses Pneumonia due to COVID-19 virus U07.1; J12.82 Diabetes E11.9 Hypertension I10 COPD (chronic obstructive pulmonary disease) J44.9 Chronic back pain M54.9; G89.29
[2020-10-11] MEDS: dexamethasone 4 mg/mL INJ 6 MG IVP (17:20)
[2020-10-11] MEDS: remdesivir 100 MG in sodium chloride 0.9% (100 ml) 100 ML IV (17:21)
[2020-10-11] MEDS: azithromycin 500 MG in sodium chloride 0.9% 250 ML 250 MG IV (19:23)
[2020-10-11] MEDS: cefTRIAXone 1,000 MG in sodium chloride 0.9% (plus) 50 ML 100 MG IV (22:38)
[2020-10-12] VITALS (15 sets, daily range): BP systolic 99–126; BP diastolic 58–80; PULSE 58–93; RESP 14–18; TEMP 36.4–36.9; O2SAT 83–98
[2020-10-12 07:57] LABS: Glucose Point of Care 257 mg/dL (70-110)
[2020-10-12 07:57] LABS: Glucose Point of Care 283 mg/dL (70-110)
[2020-10-12 07:57] LABS: Glucose Point of Care 250 mg/dL (70-110)
[2020-10-12 08:06] LABS: Glucose Point of Care 242 mg/dL (70-110)
[2020-10-12 08:06] LABS: Glucose Point of Care 327 mg/dL (70-110)
[2020-10-12 08:06] LABS: Glucose Point of Care 221 mg/dL (70-110)
[2020-10-12 08:07] LABS: Glucose Point of Care 176 mg/dL (70-110)
[2020-10-12 08:08] LABS: Glucose Point of Care 268 mg/dL (70-110)
[2020-10-12] MEDS: albuterol 8 gm MDI 1 PUFF INHALATION ×5 (08:31→23:18)
[2020-10-12] MEDS: enoxaparin 40 mg/0.4 mL Syringe SUBCUT (08:51)
[2020-10-12] MEDS: metoprolol succinate ER (24 HR) 25 mg Tablet PO (08:51)
[2020-10-12] MEDS: cholecalciferol (vitamin D3) 1,000 unit Tablet 2000 UNIT PO (08:52)
[2020-10-12] MEDS: zinc gluconate 50 mg Tablet PO (08:52)
[2020-10-12] MEDS: lisinopril 10 mg Tablet PO (08:52)
[2020-10-12] MEDS: amitriptyline 25 mg Tablet PO (08:52)
[2020-10-12] MEDS: ascorbic acid 500 mg Tablet 1000 MG PO ×2 (08:52→17:47)
[2020-10-12] MEDS: hydroCHLOROthiazide 25 mg Tablet 12.5 MG PO (08:52)
[2020-10-12 10:28] LABS: Glucose Point of Care 262 mg/dL (70-110)
[2020-10-12 10:57] LABS: D Dimer 0.93 ug/mIFEU (0-0.59)
[2020-10-12 11:05] LABS: Ferritin 124 ng/mL (15-150); Lactate Dehydrogenase 360 U/L (135-214)
--- NOTE | 2020-10-12 11:40 | PM.PN ---
Subjective Subjective: Interval history: Patient was seen and examined this morning.Currently she is doing fine supplemental oxygen requirement is going down.She fells better, has good appetite, minimal shortness of breath. Denies any cough. Medications: Reviewed: Yes Vitals/I&O/Wt Last Vital Signs Temp 98.4 F 10/12/20 07:49 Pulse 93 10/12/20 08:35 Resp 16 10/12/20 08:35 BP 126/74 10/12/20 07:49 Pulse Ox 83 L 10/12/20 08:35 10/11/20 10/12/20 10/12/20 22:59 06:59 14:59 Intake Total 710 / 950 50 / 1000 240 / 240 Output Total 1000 / 1000 Balance 710 / 950 -950 / 0 240 / 240 Weight last 48 hrs Weight 116.828 kg Physical Exam Const: COMMON NORMALS: patient oriented x3 HENMT: COMMON NORMALS: normocephalic and atraumatic HEAD & SCALP: normocephalic and atraumatic Resp: COMMON NORMALS: clear to auscultation bilaterally AUSCULTATION: clear to auscultation bilaterally Cardio: COMMON NORMALS: regular rate, regular rhythm, S1 normal heart sound present, S2 normal heart sound present, No gallops present (Cardio), No murmurs present (Cardio), No rub (Cardio) and Peripheral pulses 2+ throughout RATE: regular rate RHYTHM: regular rhythm HEART SOUNDS: S1 normal heart sound present and S2 normal heart sound present PERIPHERAL PULSES: Peripheral pulses 2+ throughout GI: COMMON NORMALS: Normal to inspection, nondistended, normoactive bowel sounds present, Soft to palpation, non-tender, No hepatosplenomegaly present and no masses AUSCULTATION: Yes normoactive bowel sounds PALPATION: Yes Soft to palpation and Yes No hepatosplenomegaly present RECTAL EXAM: deferred Extremity: COMMON NORMALS: no clubbing, cyanosis or edema and no pedal edema Neuro: COMMON NORMALS: patient oriented x3 Data : 10/11/20 07:08 10/11/20 07:08 A&P Assessment and plan (1) Pneumonia due to COVID-19 virus: Acute hypoxic respiratory failure secondary to Covid pneumonia: Currently on COVID Protocol. D -Dimer: Trending down:0.93 ESR: Trending down: 20 CRP: 5 LDH:360 Ferritin:124 Monitor ABG Monitor Xray chest: Bilateral patchy lower lobe opacities Dexamethasone 6mg I.V Daily Remdesivir 100 MG daily for 5 days () Zinc Vitamin c Albuterol Inhaler Advair Inhaler Certriaxone 1gm I.V Daily Azithromycin 500 mg I.V Daily Incentive Spirometry Flutter Valve Supplemental oxygen Status: Acute (2) Diabetes: LDSSI Monitor FSG Carbohydrate consistent diet Status: Acute (3) Hypertension: Lisinopril 10 mg p.o. Hydrochlorothiazide 12.5 mg p.o. daily Metoprolol succinate 25 mg p.o. daily Blood pressure well controlled Status: Chronic (4) COPD (chronic obstructive pulmonary disease): Status: Chronic (5) Chronic back pain: Amitriptyline 25 mg p.o. daily Percocet Status: Acute Additional A&P Information DVT PPX: Lovenox 40 mg sc daily Code Status : Full code Attestations Medical Necessity Statement*: Patient is to be in hospital for management of Covid pneumonia. Coding Level of Care Code Acute Knitting Supervisor for [facility] Fwd Diagnoses Pneumonia due to COVID-19 virus U07.1; J12.82 Diabetes E11.9 Hypertension I10 COPD (chronic obstructive pulmonary disease) J44.9 Chronic back pain M54.9; G89.29
[2020-10-12] MEDS: oxyCODONE-APAP 5-325 mg Tablet 1 TAB PO ×2 (12:21→18:49)
[2020-10-12 13:04] LABS: Erythrocyte Sedimentation Rate 20 mm/hr (0-15)
[2020-10-12 16:56] LABS: Glucose Point of Care 203 mg/dL (70-110)
--- NOTE | 2020-10-12 17:44 | PC.RESP ---
RT Shift Note Frequent safety and respiratory rounds continue. Orders completed as indicated. Patient monitored pre and post treatments throughout shift. Patient tolerated treatments appropriately. Condition improved. Patient and/or quality control representative educated on respiratory treatment and medications. Patient and/or quality control representative verbalized understanding. Will continue to monitor patient progress.
[2020-10-12] MEDS: dexamethasone 4 mg/mL INJ 6 MG IVP (17:46)
[2020-10-12] MEDS: remdesivir 100 MG in sodium chloride 0.9% (100 ml) 100 ML IV (17:47)
[2020-10-12 20:57] LABS: Glucose Point of Care 378 mg/dL (70-110)
[2020-10-12] MEDS: cefTRIAXone 1,000 MG in sodium chloride 0.9% (plus) 50 ML 100 MG IV (21:51)
[2020-10-12] MEDS: azithromycin 250 mg Tablet 500 MG PO (21:51)
[2020-10-13] VITALS (11 sets, daily range): BP systolic 113–159; BP diastolic 71–93; PULSE 60–77; RESP 14–18; TEMP 36.5–37.1; O2SAT 86–97
[2020-10-13 06:43] LABS: Glucose Point of Care 262 mg/dL (70-110)
[2020-10-13] MEDS: albuterol 8 gm MDI 1 PUFF INHALATION (08:03)
[2020-10-13] MEDS: hydroCHLOROthiazide 25 mg Tablet 12.5 MG PO (08:29)
[2020-10-13] MEDS: enoxaparin 40 mg/0.4 mL Syringe SUBCUT (08:29)
[2020-10-13] MEDS: cholecalciferol (vitamin D3) 1,000 unit Tablet 2000 UNIT PO (08:29)
[2020-10-13] MEDS: metoprolol succinate ER (24 HR) 25 mg Tablet PO (08:30)
[2020-10-13] MEDS: amitriptyline 25 mg Tablet PO (08:30)
[2020-10-13] MEDS: lisinopril 10 mg Tablet PO (08:30)
[2020-10-13] MEDS: ascorbic acid 500 mg Tablet 1000 MG PO (08:30)
[2020-10-13] MEDS: zinc gluconate 50 mg Tablet PO (08:30)
[2020-10-13] MEDS: oxyCODONE-APAP 5-325 mg Tablet 1 TAB PO (08:51)
--- NOTE | 2020-10-13 11:42 | P.DS_ITS ---
Discharge Providers Date of Admission: 10/08/20 14:31 Date of Discharge: October 13, 2020 Attending Provider at Admission: Christopher Goddard MD Attending Provider at Discharge: Snehal Jane MD Primary Care Provider: CRISTÓBAL Quiroga Diagnoses at Discharge Discharge Diagnosis (1) Pneumonia due to COVID-19 virus: Status: Acute (2) Diabetes: Status: Acute (3) Hypertension: Status: Chronic (4) COPD (chronic obstructive pulmonary disease): Status: Chronic (5) Chronic back pain: Status: Acute Reason for Visit Reason for Visit: POSSIBLE COVID/ SOB Hospital Course Hospital Course HPI done by Dr. Goddard Chula Zeyad Lawler is a 55 year old female with PMH of DM COPD, hypertension, hyperlipidemia came in with c/o worsening shortness of breath,dry cough, muscle aches, nausea , generalized malaise. Symptom began few weeks ago and has worsened since then. She was seen at a clinic today however they called 911 because her oxygen saturation was 67% on room air. Upon arrival in the ER She was worked up for above mention complain. Imaging Studies: Xray chest : Bilateral patchy lower lobe opacities Pertinent labs : Rapid COVID Antigen :Positive Hospital course Patient was admitted for management of COVID-19 related hypoxia, over the course of 5 days she finished remdesivir and Decadron, O2 requirement improved, on the day of discharge she was saturating well on room air, she will be discharged after home O2 evaluation, she is eager to return home today. She is stating that her is admitted at [place] who is severely sick with COVID-19 and currently intubated. Her vitals are stable she has not spiked any temperature she will be discharged home with Medrol pack, I would refill her albuterol rescue inhaler. D-dimer 0.9, she is not tachycardic, CTA chest was not pursued, CRP 5, procalcitonin unremarkable Patient was instructed to get COVID-19 vaccine 90 days after the infection Physical Exam Narrative: EXAM NARRATIVE: Const: COMMON NORMALS: patient oriented x3 HENMT: COMMON NORMALS: normocephalic and atraumatic HEAD & SCALP: normocephalic and atraumatic Resp: COMMON NORMALS: clear to auscultation bilaterally AUSCULTATION: clear to auscultation bilaterally Cardio: COMMON NORMALS: regular rate, regular rhythm, S1 normal heart sound present, S2 normal heart sound present, No gallops present (Cardio), No murmurs present (Cardio), No rub (Cardio) and Peripheral pulses 2+ throughout RATE: regular rate RHYTHM: regular rhythm HEART SOUNDS: S1 normal heart sound present and S2 normal heart sound present PERIPHERAL PULSES: Peripheral pulses 2+ throughout GI: COMMON NORMALS: Normal to inspection, nondistended, normoactive bowel sounds present, Soft to palpation, non-tender, No hepatosplenomegaly present and no masses AUSCULTATION: Yes normoactive bowel sounds PALPATION: Yes Soft to palpation and Yes No hepatosplenomegaly present RECTAL EXAM: deferred Extremity: COMMON NORMALS: no clubbing, cyanosis or edema and no pedal edema Neuro: COMMON NORMALS: patient oriented x3 Discharge Data Data Completed and Pending: Completed Studies During Hospitalization Category Date Time Status XR chest 1V aislinn ble [id number] Urgent Exams 10/08/20 11:44 Completed Labs from last 24 hours 10/13/20 10/12/20 10/12/20 06:36 20:36 16:43 ESR POC Glucose 262 H 378 H 203 H 10/12/20 08:46 ESR 20 H POC Glucose Vitals: Last Vital Signs Temp 97.8 F 10/13/20 08:00 Pulse 69 10/13/20 08:04 Resp 16 10/13/20 08:51 BP 159/93 10/13/20 08:00 Pulse Ox 90 10/13/20 08:04 Discharge Plan Discharge Patient Disposition: Home Condition: Stable Prescriptions: New Medrol (Jaime) 4 mg tablets,dose pack See Rx Instructions .ROUTE .COMPLEX Qty: 21 RF: 0 Continued lisinopril-hydrochlorothiazide 10-12.5 mg tablet 1 tab PO DAILY MDD SEE PHARMACY COMMENT Qty: 30 RF: 5 metoprolol succinate [Toprol XL] 25 mg tablet extended release 24 hr 25 mg PO DAILY Qty: 30 RF: 5 metformin 500 mg tablet extended release 24 hr 500 mg PO BID Qty: 60 RF: 2 amitriptyline 10 mg tablet 10 - 30 mg PO DAILY Qty: 30 RF: 2 Ozempic 0.25 mg or 0.5 mg(2 mg/1.5 mL) pen injector 0.25 mg SUBCUT Q7D RF: 0 ProAir HFA 90 mcg/actuation HFA aerosol inhaler 2 puff INHALATION Q6H PRN (Reason: shortness of breath or wheezing) 30 Days Qty: 8.5 RF: 2 Discharge Orders: Discharge Order (Routine); Ordered 10/13/20 Ordered By: Snehal Jane Discharge Diet: Cardiac Discharge Activity: Resume usual activity Patient Instructions: Opioid Safety Discharge Attestations Time Spent in Discharge Care*: less than 30 min Quality Metrics Clinical Quality Measures During this hospital stay, did patient experience: None Coding Level of Care Code Acute [facility] note Diagnoses Pneumonia due to COVID-19 virus U07.1; J12.82 Diabetes E11.9 Hypertension I10 COPD (chronic obstructive pulmonary disease) J44.9 Chronic back pain M54.9; G89.29
[2020-10-13 11:59] LABS: Glucose Point of Care 236 mg/dL (70-110)
--- NOTE | 2020-10-13 16:14 | PC.NURSE ---
Discharge Note Patient discharged to home via private vechicle accompanied by family member. Discharge instructions reviewed with patient and/or motor vehicle field representative. Mobile pharmacy medications and/or prescriptions provided. Belongings/home medications returned.
--- NOTE | 2020-10-14 14:06 | PC.SOCIAL ---
discharge follow up call made. patient is feeling better. using oxygen prn. follow up appointment made with Lupillo Fisher for 10-16, virtual visit. patient given end of quarantine date of 10-22-20. patient picked up medrol dose pack and is taking as prescribed.
== END 2020-10-13 16:17 | disposition home or self-care (01) | DRG 177 ==
LOC: ER 11:37 → MEDSURG 17:09
PROVIDERS: Admitting Provider Internal Medicine; Emergency Provider Emergency Medicine; PCP Nurse Practitioner; Visit Provider Internal Medicine
DX: U07.1 COVID-19 (principal); J12.82 Pneumonia due to coronavirus disease 2019; J96.01 Acute respiratory failure with hypoxia; E11.9 Type 2 diabetes mellitus without complications; J44.9 Chronic obstructive pulmonary disease, unspecified; I10 Essential (primary) hypertension; E78.2 Mixed hyperlipidemia; Z87.891 Personal history of nicotine dependence; G89.29 Other chronic pain; M54.9 Dorsalgia, unspecified; Z79.51 Long term (current) use of inhaled steroids
CPT/HCPCS: 36415; 36416; 36600; 71045; 80053; 81001; 82728; 82803; 82962; 83605; 83615; 83735; 83880; 84145; 84443; 84484; 85025; 85378; 85610; 85651; 85730; 86140; 87426; 87635; 93005; 94640; 96365; 96366; 96372; 96375; 99285; J0456; J0696; J1100; J1650; J1815; J2405; J3535; J7050; Q0144

== ENCOUNTER → 2020-12-11 14:41 | Outpatient (BNVA) | payer MEDICAID, SELFPAY | PROVIDERS: PCP Nurse Practitioner; Visit Provider Nurse Practitioner | DX: E11.65 Type 2 diabetes mellitus with hyperglycemia (principal); I10 Essential (primary) hypertension; J44.9 Chronic obstructive pulmonary disease, unspecified; N39.0 Urinary tract infection, site not specified | CPT/HCPCS: 80053; 80061; 81000; 83036; 87086 ==

== ENCOUNTER → 2021-03-05 14:33 | Outpatient (BNVA) | payer MEDICAID, SELFPAY | PROVIDERS: PCP Nurse Practitioner; Visit Provider Nurse Practitioner | DX: E11.65 Type 2 diabetes mellitus with hyperglycemia (principal); E55.9 Vitamin D deficiency, unspecified | CPT/HCPCS: 80053; 82043; 82306; 83036 ==

== ENCOUNTER → 2021-05-28 14:38 | Outpatient (BNVA) | payer MEDICAID, SELFPAY | PROVIDERS: PCP Nurse Practitioner; Visit Provider Nurse Practitioner | DX: E11.65 Type 2 diabetes mellitus with hyperglycemia (principal); E55.9 Vitamin D deficiency, unspecified | CPT/HCPCS: 80053; 80061; 82043; 82306; 82607; 83036; 85025 ==

== ENCOUNTER 2021-06-17 15:05 | Outpatient (CLI) | payer MEDICAID, SELFPAY ==
--- NOTE | 2021-06-17 15:15 | USCV_ITS ---
Chula Lawler Age: 55 Gender: F : 1965 Exam Date: 06/17/2021 15:31 Ordering Phys: Lupillo Fisher Technologist: WICHO Exam Location: [facility] [place] Indication: clinical murmur. BP: / HR: 56 Rhythm: Sinus Technical Quality: Adequate MEASUREMENTS (Male / Female) Normal Values 2D ECHO LV Diastolic Diameter PLAX 4.1 cm 4.2 - 5.9 / 3.9 - 5.3 cm LV Systolic Diameter PLAX 2.5 cm IVS Diastolic Thickness 1.1 cm 0.6 - 1.0 / 0.6 - 0.9 cm IVS Systolic Thickness 1.7 cm LVPW Diastolic Thickness 1.0 cm 0.6 - 1.0 / 0.6 - 0.9 cm LVPW Systolic Thickness 1.5 cm LVOT Diameter 1.7 cm LV Ejection Fraction 2D Teich 67.7 % LV Ejection Fraction MOD 2C 59.3 % LV Ejection Fraction 2C AL 63.2 % LA Diameter 4.2 cm LA Width 2.6 cm LA Height 4.7 cm RA Width 2.5 cm RA Height 3.6 cm Aorta at Sinotubular Diameter 3.1 cm IVC Diameter 1.5 cm M-MODE Aortic Annulus Diameter 3.4 cm LA Ao Ratio MM 1.3 MV E Point Septal Separation 0.5 cm DOPPLER AV Peak Velocity 235.0 cm/s LVOT Peak Velocity 119.0 cm/s AV Area Cont Eq vti 1.3 cm squared AV Area Cont Eq pk 1.2 cm squared MV Peak Velocity 111.0 cm/s MV Area PHT 2.9 cm squared Mitral E to A Ratio 0.7 MV E' Velocity 46.5 cm/s Mitral E to MV E' Ratio 10.8 Mitral E to LV E' Lateral Ratio 9.9 Mitral E to LV E' Septal Ratio 11.9 TR Peak Velocity 255.0 cm/s TR Peak Gradient 26.0 mmHg TV Peak E Velocity 54.0 cm/s Right Atrial Pressure 5.0 mmHg Pulmonary Artery Systolic Pressu 31.0 mmHg PV Peak Velocity 89.0 cm/s FINDINGS Left Ventricle Normal left ventricular size and systolic function, EF 60 %. No regional wall motion abnormalities. Grade I/IV diastolic dysfunction (abnormal relaxation filling pattern), normal to mildly elevated filling pressures. Right Ventricle The right ventricle is normal in size and function. Right Atrium The right atrium is normal in size. Left Atrium The left atrium is normal in size. Mitral Valve No gross abnormalities noted Aortic Valve Thickened aortic valve. Moderate aortic valve regurgitation. Peak velocity of 2.35 m/s with a peak gradient of 22 and a mean gradient of 7 mmHg . The valve area is continued to be 1.3 cm squire Tricuspid Valve Trace to mild tricuspid valve regurgitation. Pulmonic Valve Pulmonic valve not well visualized. Pericardium Trivial pericardial effusion. Aorta Normal ascending aorta dimension. CONCLUSIONS Normal left ventricular size and systolic function, EF 60 %. No regional wall motion abnormalities. Grade I/IV diastolic dysfunction (abnormal relaxation filling pattern), normal to mildly elevated filling pressures. Moderate aortic valve stenosis with valve area 1.3 cm squire. Moderate aortic regurgitation. Trace to mild tricuspid valve regurgitation. Estimated pulmonary artery peak systolic pressure 31 mmHg There is no pericardial effusion. There are no intracardiac masses. No previous study is available for comparison. Dr Zina Trinidad MD FAC (Electronically Signed) Final Date: 18 Jun 2021 08:05 S
== END 2021-06-17 15:06 | disposition home or self-care (01) ==
LOC: RAD 15:12
PROVIDERS: PCP Nurse Practitioner; Visit Provider Nurse Practitioner
DX: R01.1 Cardiac murmur, unspecified (principal); I08.2 Rheumatic disorders of both aortic and tricuspid valves
CPT/HCPCS: 93306

== ENCOUNTER 2021-07-28 13:33 | Outpatient (CLI) | payer OTHER, SELFPAY ==
--- NOTE | 2021-07-28 13:48 | XR_ITS ---
WS: [id number] Exam: XR chest 2V* [id number] Date/Time of Exam: 07/28/2021 1:58 PM Reason For Exam: COPD Comparison 10/08/2020. The lungs are clear and fully inflated. Normal cardiomediastinal silhouette. No pleural effusions. Dustin ny structures are intact. XR/XR chest 2V* [id number] IMPRESSION: 1. No acute cardiopulmonary finding.
--- NOTE | 2021-07-28 13:54 | PFTS_ITS ---
Date of Study:07/28/21 Date of Dictation: MECHANICS: Forced vital capacity (FVC) is reduced. Forced expiratory volume in one second (FEV1) is reduced. FEV1/FVC is reduced. FLOW VOLUME LOOP: Reduced flow at all lung volumes with scooping. LUNG VOLUMES: Not measured DIFFUSING CAPACITY FOR CARBON MONOXIDE: Not measured. INTERPRETATION: The post bronchodilator spirometry is consistent with severe airflow obstruction. There was no significant postbronchodilator response. A component of restrictive lung disease could not be ruled out due to the absence of lung volume measurement. MTDD
== END 2021-07-28 13:34 | disposition home or self-care (01) ==
LOC: RT 13:36
PROVIDERS: PCP Nurse Practitioner; Visit Provider Family Medicine
DX: J44.9 Chronic obstructive pulmonary disease, unspecified (principal); Z02.71 Encounter for disability determination
CPT/HCPCS: 71046; 94060; J7611

== ENCOUNTER → 2021-08-17 13:34 | Outpatient (BNVA) | payer MEDICAID, SELFPAY | PROVIDERS: PCP Nurse Practitioner; Visit Provider Nurse Practitioner | DX: E11.65 Type 2 diabetes mellitus with hyperglycemia (principal); J44.9 Chronic obstructive pulmonary disease, unspecified; I10 Essential (primary) hypertension; E78.2 Mixed hyperlipidemia; M51.36 Other intervertebral disc degeneration, lumbar region; F41.8 Other specified anxiety disorders; E55.9 Vitamin D deficiency, unspecified; R01.1 Cardiac murmur, unspecified; E53.8 Deficiency of other specified B group vitamins | CPT/HCPCS: 80053; 82306; 82607; 83036 ==

== ENCOUNTER → 2021-09-04 15:22 | Outpatient (BNVA) | payer MEDICAID, SELFPAY | PROVIDERS: PCP Nurse Practitioner; Visit Provider Nurse Practitioner Family | DX: R30.0 Dysuria (principal); N39.0 Urinary tract infection, site not specified | CPT/HCPCS: 81000 ==

== ENCOUNTER → 2021-11-09 13:28 | Outpatient (BNVA) | payer MEDICAID, SELFPAY | PROVIDERS: PCP Nurse Practitioner; Visit Provider Nurse Practitioner | DX: E55.9 Vitamin D deficiency, unspecified (principal); J44.9 Chronic obstructive pulmonary disease, unspecified; M51.36 Other intervertebral disc degeneration, lumbar region; E11.65 Type 2 diabetes mellitus with hyperglycemia; I10 Essential (primary) hypertension; E78.2 Mixed hyperlipidemia; F41.8 Other specified anxiety disorders; R46.81 Obsessive-compulsive behavior | CPT/HCPCS: 80053; 83036; 84443 ==

== ENCOUNTER → 2022-01-25 15:38 | Outpatient (BNVA) | payer MEDICAID, SELFPAY | PROVIDERS: PCP Nurse Practitioner; Visit Provider Nurse Practitioner | DX: E11.65 Type 2 diabetes mellitus with hyperglycemia (principal); J44.9 Chronic obstructive pulmonary disease, unspecified; I10 Essential (primary) hypertension; R46.81 Obsessive-compulsive behavior; E78.2 Mixed hyperlipidemia; F41.8 Other specified anxiety disorders; M51.36 Other intervertebral disc degeneration, lumbar region | CPT/HCPCS: 80053; 80061; 83036 ==

== ENCOUNTER → 2022-03-02 13:08 | Outpatient (BNVA) | payer MEDICAID, SELFPAY | PROVIDERS: PCP Nurse Practitioner; Visit Provider Nurse Practitioner Family | DX: R30.0 Dysuria (principal); B37.31 Acute candidiasis of vulva and vagina | CPT/HCPCS: 81000 ==

== ENCOUNTER → 2022-03-16 15:45 | Outpatient (BNVA) | payer MEDICAID, SELFPAY | PROVIDERS: PCP Nurse Practitioner; Visit Provider Nurse Practitioner | DX: J44.9 Chronic obstructive pulmonary disease, unspecified (principal); E11.65 Type 2 diabetes mellitus with hyperglycemia; I10 Essential (primary) hypertension; E78.2 Mixed hyperlipidemia; M51.36 Other intervertebral disc degeneration, lumbar region; F41.8 Other specified anxiety disorders | CPT/HCPCS: 80053; 81000; 83036 ==

== ENCOUNTER → 2022-04-19 14:52 | Outpatient (BNVA) | payer MEDICAID, SELFPAY | PROVIDERS: PCP Nurse Practitioner; Visit Provider Nurse Practitioner | DX: E11.65 Type 2 diabetes mellitus with hyperglycemia (principal); M51.36 Other intervertebral disc degeneration, lumbar region; I10 Essential (primary) hypertension | CPT/HCPCS: 80048 ==

== ENCOUNTER → 2022-04-29 13:13 | Outpatient (BNVA) | payer MEDICAID, SELFPAY | PROVIDERS: PCP Nurse Practitioner; Visit Provider Family Medicine | DX: N39.0 Urinary tract infection, site not specified (principal); B37.31 Acute candidiasis of vulva and vagina | CPT/HCPCS: 81003; 87086 ==

== ENCOUNTER 2022-05-24 10:19 | Outpatient (CLI) | payer MEDICAID, SELFPAY ==
--- NOTE | 2022-05-24 10:59 | XR_ITS ---
WS: [id number] Lumbar spine with flexion, extension, and neutral lateral, 05/24/2022 Clinical Data: Spondylolisthesis, lumbar REGION Comparison: Lumbar spine, 07/02/2020 Findings: No compression fractures or subluxation is seen. No disc space narrowing is seen. No limitation of motion or subluxation is seen. There is calcification of the wall of the abdominal aorta without aneurysm XR/XR lumbar spine f/e only [id number] Impression: 1. Negative for subluxation. 2. Negative for limitation of motion on flexion or extension.
== END 2022-05-24 10:20 | disposition home or self-care (01) ==
LOC: RAD 10:25
PROVIDERS: PCP Nurse Practitioner; Visit Provider Nurse Practitioner
DX: M43.16 Spondylolisthesis, lumbar region (principal)
CPT/HCPCS: 72120

== ENCOUNTER → 2022-06-08 11:38 | Outpatient (BNVA) | payer MEDICAID, SELFPAY | PROVIDERS: PCP Nurse Practitioner; Visit Provider Nurse Practitioner | DX: J44.9 Chronic obstructive pulmonary disease, unspecified (principal); E11.65 Type 2 diabetes mellitus with hyperglycemia; I10 Essential (primary) hypertension; E78.2 Mixed hyperlipidemia; M51.36 Other intervertebral disc degeneration, lumbar region; F41.8 Other specified anxiety disorders | CPT/HCPCS: 80053; 80061; 83036; 84443 ==

== ENCOUNTER → 2022-06-09 11:36 | Outpatient (BNVA) | payer MEDICAID, SELFPAY | PROVIDERS: PCP Nurse Practitioner; Visit Provider Nurse Practitioner | DX: E11.65 Type 2 diabetes mellitus with hyperglycemia (principal) | CPT/HCPCS: 82043 ==

== ENCOUNTER → 2022-08-24 09:45 | Outpatient (BNVA) | payer MEDICAID, SELFPAY | PROVIDERS: PCP Nurse Practitioner; Visit Provider Nurse Practitioner | DX: E11.65 Type 2 diabetes mellitus with hyperglycemia (principal); I10 Essential (primary) hypertension; J44.9 Chronic obstructive pulmonary disease, unspecified; E78.2 Mixed hyperlipidemia; M51.36 Other intervertebral disc degeneration, lumbar region; F41.8 Other specified anxiety disorders; R10.9 Unspecified abdominal pain; E55.9 Vitamin D deficiency, unspecified; E53.8 Deficiency of other specified B group vitamins; Z12.31 Encounter for screening mammogram for malignant neoplasm of breast | CPT/HCPCS: 80053; 81000; 83036 ==

== ENCOUNTER 2022-09-08 13:14 | Outpatient (CLI) | payer MEDICAID, SELFPAY ==
--- NOTE | 2022-09-08 13:19 | MM_ITS ---
WS: [id number] BILATERAL 3D TOMOSYNTHESIS DIGITAL SCREENING MAMMOGRAPHY WITH CAD CLINICAL INFORMATION: Z12.31 - Encounter for screening mammogram for malignant ... HISTORY: Screening mammogram. No current complaints. COMPARISON: None. TECHNIQUE: Bilateral CC and MLO views. FINDINGS: Scattered fibroglandular densities bilaterally. No suspicious focal mass, asymmetry, calcifications, or architectural distortion. No evidence of malignancy. MM/[place] [id number] IMPRESSION: BI-RADS: 1-Negative FOLLOW UP: 1 Year Follow-up Recommend return to annual screening mammography.
== END 2022-09-08 13:15 | disposition home or self-care (01) ==
PROVIDERS: PCP Nurse Practitioner; Visit Provider Nurse Practitioner
DX: Z12.31 Encounter for screening mammogram for malignant neoplasm of breast (principal)
CPT/HCPCS: 77063; 77067

== ENCOUNTER → 2022-11-16 10:13 | Outpatient (BNVA) | payer MEDICAID, SELFPAY | PROVIDERS: PCP Nurse Practitioner; Visit Provider Nurse Practitioner | DX: J44.9 Chronic obstructive pulmonary disease, unspecified (principal); E11.65 Type 2 diabetes mellitus with hyperglycemia; I10 Essential (primary) hypertension; E78.2 Mixed hyperlipidemia; M51.36 Other intervertebral disc degeneration, lumbar region; F41.8 Other specified anxiety disorders | CPT/HCPCS: 80053; 81000; 83036 ==

== ENCOUNTER → 2022-12-20 09:51 | Outpatient (BNVA) | payer MEDICAID, SELFPAY | PROVIDERS: PCP Nurse Practitioner; Visit Provider Nurse Practitioner Family | DX: M25.562 Pain in left knee (principal); R29.898 Other symptoms and signs involving the musculoskeletal system; M25.662 Stiffness of left knee, not elsewhere classified | CPT/HCPCS: 73562 ==

== ENCOUNTER → 2023-02-09 09:35 | Outpatient (BNVA) | payer MEDICAID, SELFPAY | PROVIDERS: PCP Nurse Practitioner; Visit Provider Nurse Practitioner | DX: J44.9 Chronic obstructive pulmonary disease, unspecified (principal); E11.65 Type 2 diabetes mellitus with hyperglycemia; I10 Essential (primary) hypertension; E78.2 Mixed hyperlipidemia; M51.36 Other intervertebral disc degeneration, lumbar region; F41.8 Other specified anxiety disorders; E11.9 Type 2 diabetes mellitus without complications | CPT/HCPCS: 80053; 80061; 81000; 83036 ==

== ENCOUNTER → 2023-05-05 10:09 | Outpatient (BNVA) | payer MEDICAID, SELFPAY | PROVIDERS: PCP Nurse Practitioner; Visit Provider Nurse Practitioner | DX: E11.9 Type 2 diabetes mellitus without complications (principal); J44.9 Chronic obstructive pulmonary disease, unspecified; F41.8 Other specified anxiety disorders; M25.50 Pain in unspecified joint; E55.9 Vitamin D deficiency, unspecified; E53.8 Deficiency of other specified B group vitamins | CPT/HCPCS: 80053; 81000; 82306; 82607; 83036 ==

== ENCOUNTER → 2023-05-25 13:35 | Outpatient (BNVA) | payer MEDICAID, SELFPAY | PROVIDERS: PCP Nurse Practitioner; Visit Provider Nurse Practitioner | DX: M25.511 Pain in right shoulder (principal); M25.512 Pain in left shoulder; M25.522 Pain in left elbow; M25.521 Pain in right elbow | CPT/HCPCS: 73030; 73080 ==

== ENCOUNTER → 2023-07-21 10:33 | Outpatient (BNVA) | payer MEDICAID, SELFPAY | PROVIDERS: PCP Nurse Practitioner; Visit Provider Nurse Practitioner | DX: J44.9 Chronic obstructive pulmonary disease, unspecified (principal); E11.65 Type 2 diabetes mellitus with hyperglycemia; I10 Essential (primary) hypertension; E78.2 Mixed hyperlipidemia; M51.36 Other intervertebral disc degeneration, lumbar region; F41.8 Other specified anxiety disorders; E11.9 Type 2 diabetes mellitus without complications; Z79.899 Other long term (current) drug therapy | CPT/HCPCS: 80053; 80061; 81000; 82043; 83036 ==

== ENCOUNTER → 2023-10-06 10:42 | Outpatient (BNVA) | payer MEDICARE, MEDICAID, SELFPAY | PROVIDERS: PCP Nurse Practitioner; Visit Provider Nurse Practitioner | DX: E11.9 Type 2 diabetes mellitus without complications (principal) | CPT/HCPCS: 80053; 81000; 83036 ==

== ENCOUNTER 2023-10-18 14:24 | Outpatient (CLI) | payer MEDICARE, MEDICAID, SELFPAY ==
--- NOTE | 2023-10-18 14:20 | MM_ITS ---
WS: [id number] BILATERAL 3D TOMOSYNTHESIS DIGITAL SCREENING MAMMOGRAPHY WITH CAD CLINICAL INFORMATION: Z12.31 - Encounter for screening mammogram for malignant ... HISTORY: Screening mammogram. No current complaints. COMPARISON: 2022 TECHNIQUE: Bilateral CC and MLO views. FINDINGS: Scattered fibroglandular densities bilaterally. No suspicious focal mass, asymmetry, calcifications, or architectural distortion. No evidence of malignancy. Lucent centered calcification RIGHT breast MM/[place] [id number] IMPRESSION: DENSITY: There are scattered areas of fibroglandular density. BI-RADS: 2 - Benign. FOLLOW UP: 1 Year Follow-up Recommend return to annual screening mammography.
== END 2023-10-18 14:25 | disposition home or self-care (01) ==
LOC: MOBLMAM 14:29
PROVIDERS: PCP Nurse Practitioner; Visit Provider Nurse Practitioner
DX: Z12.31 Encounter for screening mammogram for malignant neoplasm of breast (principal); R92.323 Mammographic fibroglandular density, bilateral breasts; R92.1 Mammographic calcification found on diagnostic imaging of breast
CPT/HCPCS: 77063; 77067; 80053; 81000; 83036

== ENCOUNTER → 2023-10-20 09:58 | Outpatient (BNVA) | payer MEDICARE, MEDICAID, SELFPAY | PROVIDERS: PCP Nurse Practitioner; Visit Provider Nurse Practitioner | DX: M17.12 Unilateral primary osteoarthritis, left knee (principal); M25.562 Pain in left knee | CPT/HCPCS: 73562 ==

== ENCOUNTER → 2023-11-29 16:41 | Outpatient (BNVA) | payer MEDICARE, MEDICAID, SELFPAY | PROVIDERS: PCP Nurse Practitioner; Visit Provider Nurse Practitioner | DX: M77.31 Calcaneal spur, right foot (principal); M25.571 Pain in right ankle and joints of right foot | CPT/HCPCS: 73610 ==

== ENCOUNTER → 2023-12-22 11:06 | Outpatient (BNVA) | payer MEDICARE, MEDICAID, SELFPAY | PROVIDERS: PCP Nurse Practitioner; Visit Provider Nurse Practitioner | DX: E11.9 Type 2 diabetes mellitus without complications (principal) | CPT/HCPCS: 80053; 81000; 83036 ==

== ENCOUNTER → 2024-01-23 10:59 | Outpatient (BNVA) | payer MEDICARE, MEDICAID, SELFPAY | PROVIDERS: PCP Nurse Practitioner; Visit Provider Nurse Practitioner | DX: R20.2 Paresthesia of skin (principal); M47.892 Other spondylosis, cervical region | CPT/HCPCS: 72040 ==

== ENCOUNTER → 2024-03-20 15:37 | Outpatient (BNVA) | payer MEDICARE, MEDICAID, SELFPAY | PROVIDERS: PCP Nurse Practitioner; Visit Provider Nurse Practitioner | DX: E11.9 Type 2 diabetes mellitus without complications (principal) | CPT/HCPCS: 80053; 80061; 81003; 83036 ==

== ENCOUNTER → 2024-06-25 11:39 | Outpatient (BNVA) | payer MEDICARE, MEDICAID, SELFPAY | PROVIDERS: PCP Nurse Practitioner; Visit Provider Nurse Practitioner | DX: E11.65 Type 2 diabetes mellitus with hyperglycemia (principal); E55.9 Vitamin D deficiency, unspecified | CPT/HCPCS: 80053; 81000; 83036 ==

== ENCOUNTER → 2024-07-13 09:53 | Outpatient (BNVA) | payer MEDICARE, MEDICAID, SELFPAY | PROVIDERS: PCP Nurse Practitioner; Referring Provider Nurse Practitioner; Visit Provider Psychiatry & Neurology Neurology | DX: G62.9 Polyneuropathy, unspecified (principal); M54.2 Cervicalgia; G89.29 Other chronic pain; I49.9 Cardiac arrhythmia, unspecified; M25.511 Pain in right shoulder; M25.512 Pain in left shoulder; M25.619 Stiffness of unspecified shoulder, not elsewhere classified; R20.2 Paresthesia of skin; M79.601 Pain in right arm; M79.602 Pain in left arm | CPT/HCPCS: 99203 ==

== ENCOUNTER → 2024-07-23 14:27 | Outpatient (BNVA) | payer MEDICARE, MEDICAID, SELFPAY | PROVIDERS: PCP Nurse Practitioner; Visit Provider Orthopaedic Surgery | DX: M25.511 Pain in right shoulder (principal); M25.512 Pain in left shoulder; G89.29 Other chronic pain | CPT/HCPCS: 73030; 99204 ==

== ENCOUNTER 2024-07-25 15:02 | Outpatient (CLI) | payer MEDICARE, MEDICAID, SELFPAY ==
--- NOTE | 2024-07-25 15:09 | MR_ITS ---
WS: [id number] MRI CERVICAL SPINE with and without contrast HISTORY: CHRONIC NECK PAIN/CERVICALGIA COMPARISON: None available. Technique: Multiplanar, multisequence noncontrast imaging of the cervical spine. Postcontrast MultiHance 20 mL IV. Straightening and slight reversal of the normal cervical lordosis. Reversal centered at C5-6. Reactive marrow edema in the endplates of C4 and C5. Disc spaces are all narrowed with hypertrophic osteophytes, most significant at C4, C5 and C6. Very slight anterolisthesis of C4. Signal within the cervical cord is normal. Visualized posterior fossa is unremarkable. Craniocervical junction, C1 and C2 relationship, odontoid process and soft tissues are normal. C2-C3: Normal. C3-C4: Diffuse annular disc bulging with osteophytic ridging and facet arthritis. Minimal central or foraminal stenosis. C4-C5: Moderate annular disc bulging with osteophytic ridging. Broad-based central disc protrusion encroaching upon the ventral thecal sac with effacement of CSF. Posterior encroachment on the cord by facet joint arthritis. Severe central and bilateral foraminal stenosis. C5-C6: Diffuse osteophytic ridging, annular disc bulging and facet arthritis. Severe central and bilateral foraminal stenosis. C6-C7: Diffuse annular disc bulging with osteophytic ridging and facet arthritis. Mild contact on the ventral thecal sac. Moderate to severe central and bilateral foraminal stenosis. C7-T1: Normal. Very mild enhancement within the C4 and C5 vertebral bodies is probably reactive marrow edema and may indicate some instability. There is no mass. The disc spaces do not enhance. MR/MR cervical spine wo/w [id number] IMPRESSION: 1. Advanced degenerative cervical spondylosis at C4-5 and C5-6. Multilevel are as of disc space narrowing, disc bulging with osteophytosis and facet arthropat hy. 2. C4-5 and C5-6: Severe central and bilateral foraminal stenosis due to disc osteophyte disease. 3. C6-7: Moderate to severe central and bilateral foraminal stenosis. 4. Mild C4 and C5 vertebral body enhancement is likely inflammatory and may be related to some instability at this level. No discitis.
[2024-07-25] MEDS: gadobenate dimeglumine 20 mL vial IV (16:09)
== END 2024-07-25 15:03 | disposition home or self-care (01) ==
LOC: RAD 15:04
PROVIDERS: PCP Nurse Practitioner; Visit Provider Psychiatry & Neurology Neurology
DX: M48.02 Spinal stenosis, cervical region (principal); M47.892 Other spondylosis, cervical region; M25.78 Osteophyte, vertebrae; M50.31 Other cervical disc degeneration, high cervical region; M50.321 Other cervical disc degeneration at C4-C5 level; M50.221 Other cervical disc displacement at C4-C5 level; M50.322 Other cervical disc degeneration at C5-C6 level; M50.323 Other cervical disc degeneration at C6-C7 level
CPT/HCPCS: 72156

== ENCOUNTER → 2024-08-07 14:12 | Outpatient (BNVA) | payer MEDICARE, MEDICAID, SELFPAY | PROVIDERS: PCP Nurse Practitioner; Visit Provider Orthopaedic Surgery | DX: M48.02 Spinal stenosis, cervical region (principal); Z01.818 Encounter for other preprocedural examination | CPT/HCPCS: 36415; 72050; 80053; 81001; 83036; 85025; 99204 ==

== ENCOUNTER → 2024-08-08 08:41 | Outpatient (BNVA) | payer MEDICARE, MEDICAID, SELFPAY | PROVIDERS: PCP Nurse Practitioner; Visit Provider Family Medicine | DX: Z01.818 Encounter for other preprocedural examination (principal) | CPT/HCPCS: 93005 ==

== ENCOUNTER 2024-08-20 15:29 | Observation (INO) | payer MEDICARE, MEDICAID, SELFPAY ==
[2024-08-20] VITALS (20 sets, daily range): BP systolic 137–173; BP diastolic 63–90; PULSE 76–100; RESP 16–24; TEMP 36.1–36.8; O2SAT 94–97; BMI 37.3; BMI 38.2
--- NOTE | 2024-08-20 06:20 | ANES.PREANE2 ---
Pre-Anesthetic Assessment Height/Weight: Height 5 ft 7 in Weight 238 lb O2 Del Method Room Air 08/20/24 06:07 Preop Diagnosis: Cervical radiculopathy with cervical stenosis Operation Date: 08/20/24 07:00 Proposed Procedures p Anterior Cervical Discectomy & Fusion ACDF w/ Anterior Interbody Fusion w/ Cage w/ Instrumentation w/ Allograft w/ Navigation(Not Applicable) - Sam Orozco, DO Was Beta Eb taken within 24 hours: Yes Was Clonidine taken within 24 hours: N/A Last intake: Intake Last Liquid Date 08/19/24 Last Liquid Time 23:59 Last Solid Date 08/19/24 Last Solid Time 20:00 Social No alcohol and No tobacco Quit smoking 5 years ago Exam alert, oriented x 3, clear to auscultation bilaterally and regular rate & rhythm Airway Submandibular: within normal limits Cervical ROM: within normal limits Mallampati: Class III Comments: Comments: Edentulous Anesthetic Plan ASA status: 3 Anesthesia: General Other: No prior issues with anesthesia N.p.o. since yesterday evening History of COPD, quit smoking 5 years ago Hypertension on lisinopril and metoprolol GERD, controlled Pepcid Type 2 diabetes, no insulin Echo 2021 showing EF of 60% with no wall motion abnormalities EKG sinus rhythm Labs reviewed 08/07/2024 acceptable for procedure today Plan for GETA Medications/Allergies Home Medications ?Medication ?Instructions ?Recorded ?Confirmed ?Last Taken ?Type ascorbic acid (vitamin C) 500 mg 500 mg PO BID 10/16/20 08/16/24 08/16/24 History tablet blood-glucose meter (TRAFITouch #1 ea 12/11/20 08/07/24 Unknown Rx Ultra2 Meter kit) cholecalciferol (vitamin D3) 125 125 mcg PO DAILY #1 cap 11/09/21 08/16/24 08/16/24 Rx mcg (5,000 unit) capsule hydrocodone 7.5 mg-acetaminophen See Rx Instructions PO .COMPLEX 02/09/23 08/16/24 08/16/24 History 325 mg tablet dapagliflozin propanediol 10 mg 10 mg PO QAM #30 tabs 03/20/24 08/16/24 08/15/24 Rx tablet (Farxiga) lisinopril 5 mg tablet 5 mg PO DAILY #30 tabs 03/20/24 08/16/24 08/16/24 Rx magnesium oxide 800 mg (2 x 400 mg magnesium) PO 03/20/24 08/16/24 08/16/24 Rx DAILY #180 tabs metformin 500 mg tablet,extended 2,000 mg (4 x 500 mg) PO DAILY 03/20/24 08/16/24 08/16/24 Rx release 24 hr #120 tabs metoprolol succinate 25 mg 25 mg PO DAILY #30 tabs 03/20/24 08/16/24 08/16/24 Rx tablet,extended release 24 hr (Toprol XL) potassium chloride 10 mEq 10 meq PO DAILY #30 tabs 03/20/24 08/16/24 08/16/24 Rx tablet,extended release(part/cryst) rosuvastatin 10 mg tablet 10 mg PO DAILY #30 tabs 03/20/24 08/16/24 08/16/24 Rx tizanidine 4 mg tablet (Zanaflex) 4 mg PO .at bedtime #30 tabs 03/20/24 08/16/24 08/16/24 Rx Disposable nebulizer circuit #1 ea 04/12/24 08/07/24 Unknown Rx fluticasone propionate 50 1 spray intranasal DAILY #16 grams 05/09/24 08/16/24 08/15/24 Rx mcg/actuation nasal spray,suspension (Flonase Allergy Relief) blood sugar diagnostic (TRAFIuch #50 ea 06/14/24 08/07/24 Unknown Rx Ultra Test strips) lancets 33 gauge (TRAFITouch Delica #100 ea 06/14/24 08/07/24 Unknown Rx Plus Lancet) budesonide 160 mcg-glycopyr 9 2 inh inhalation BID #10.7 grams 06/25/24 08/16/24 08/16/24 Rx mcg-formot 4.8 mcg/actuation HFA inhaler (Breztri Aerosphere) duloxetine 30 mg capsule,delayed 30 mg PO BID #60 caps 06/25/24 08/16/24 08/16/24 Rx release (Cymbalta) famotidine 20 mg tablet (Pepcid AC) 20 mg PO BID #60 tabs 06/25/24 08/16/24 08/16/24 Rx albuterol sulfate 90 mcg/actuation 2 puff inhalation Q6H PRN 07/17/24 08/16/2425 Rx aerosol inhaler shortness of breath or wheezing #8.5 grams ropinirole 1 mg tablet 1 mg PO BID #60 tabs 07/19/24 08/16/24 08/20/24 Rx aspirin 81 mg chewable tablet 81 mg PO DAILY 08/08/24 08/16/24 08/14/24 History ibuprofen 800 mg tablet (IBU) 800 mg PO TID 08/08/24 08/16/24 08/15/24 History metoprolol succinate 25 mg 25 mg PO DAILY 08/20/24 08/20/24 08/20/24 History tablet,extended release 24 hr Allergies Allergy/AdvReac Type Severity Reaction Status Date / Time No Known Allergies Allergy Verified 08/08/24 08:55 [facility] Anesthesia Medical History Aortic stenosis, moderate Echo Jun, 2021 Obsessive behaviors Degenerative disc disease, lumbar Chronic back pain Diabetes Pneumonia due to COVID-19 virus History of nicotine use COPD (chronic obstructive pulmonary disease) Hyperlipemia, mixed Hypertension Surgical History History of hysterectomy Family History Other Diabetes Hypertension Denies family history of Cancer Stroke Social History Smoking and tobacco/nicotine status: former use of tobacco/nicotine Second hand smoke exposure: No Alcohol intake: current Alcohol intake frequency: holidays/special occasions only Substance/Drug Use: unknown Adopted: No Caregiver/support person: No Lives independently: Yes Household members: spouse Housing: Manufactured/Mobile home Marital status: Number of children: 5 service: No Current occupational status: unemployed Do you think of yourself as: Straight/Heterosexual Current gender identity: Female Data Anesthesia Cardiac Studies: Echocardiogram 06/17/21
--- NOTE | 2024-08-20 06:24 | W.PM.OPSUD ---
Surgery/Procedure H&P Update DATE OF PROCEDURE: August 20, 2024 DATE H&P PERFORMED: 08/07/24 H&P UPDATE INFORMATION: I have reviewed H&P completed within last 30 days, I have examined patient prior to procedure and No changes to prior documentation PREOP DIAGNOSIS: Cervical radiculopathy with cervical stenosis PLANNED PROCEDURE: Operation Date: 08/20/24 07:00 Proposed Procedures p Anterior Cervical Discectomy & Fusion ACDF w/ Anterior Interbody Fusion w/ Cage w/ Instrumentation w/ Allograft w/ Navigation(Not Applicable) - Sam Orozco DO
[2024-08-20] MEDS: ceFAZolin 2,000 mg SDV 2000 MG IVP ×3 (07:01→22:42)
[2024-08-20] MEDS: lidocaine-epi 1% 20 mL INJ INJECTION (07:53)
--- NOTE | 2024-08-20 09:10 | P.OP_ITS ---
Operative Report Date of procedure: August 20, 2024 Pre-op diagnosis: Cervical stenosis with myelopathy Post-op diagnosis: same Procedure done: 1. Anterior diskectomy C4/5 2. Anterior discectomy C5/6 3. Insertion of cage C4/5 4. Insertion of Cage C5/6 5. Instrumentation with anterior plate from C4-C6 6. Use of allograft Surgeon: Sam Orozco DO Estimated blood loss (mL): 20 Procedure: 1. Anterior diskectomy C4/5 2. Anterior discectomy C5/6 3. Insertion of cage C4/5 4. Insertion of Cage C5/6 5. Instrumentation with anterior plate from C4-C6 6. Use of allograft The patient was taken to the operating room, where he underwent general endotracheal anesthesia without complications. He was then positioned supine on the operating table, and all areas of impingement were well padded. The arms were carefully padded and tucked at his sides. A roll was placed between the shoulder blades.. An x-ray was done to determine the appropriate level for the skin incision. The entire neck was then sterilely prepped and draped in the usual fashion. Neuromonitoring was attached prior to prepping. A transverse skin incision was made and carried down to the platysma muscle. This was then split in line with its fibers. Blunt dissection was carried down medial to the carotid sheath and lateral to the trachea and esophagus until the anterior cervical spine was visualized. A needle was placed into a disc and an x-ray was done to determine its location. The longus colli muscles were then elevated bilaterally with the electrocautery unit. Self-retaining retractors were placed deep to the longus colli muscle. Attention was brought to the C4/5 level that was confirmed on x-ray. A caspar pin was placed into the C4 vertebrae and the C5 vertebrae. The disk space was then distracted. The microscope was then brought in. A radical anterior discectomies were performed at C4/5. This included complete removal of the anterior annulus, nucleus, and posterior annulus. The posterior longitudinal ligament was removed as were the posterior osteophytes. Foraminotomies were then accomplished bilaterally. This was done using a high speed bob, kerrison rongeurs and curretes Once all of this was accomplished, the curved currette was used to check for any residual compression. The central canal was wide open as were the foramen. A high-speed bur was used to remove the cartilaginous endplates above and below the interspace. Bleeding cancellous bone was exposed. The disc space were measured and appropriate size cage were placed sterilely onto the field. Allograft graft was packed into the cages. The cage was then placed and there was good juxtaposition against the bleeding decorticated surfaces and good distraction of each interspace. Attention was brought to the next interspace. The Mifflin pins were removed. Bone wax was used to prevent any bleeding from occurring at the pin sites. Attention was brought to the C5/6 level that was confirmed on x-ray. A caspar pin was placed into the C5 vertebrae and the C6 vertebrae. The disk space was then distracted. The microscope was then brought in. A radical anterior discectomies were performed at C5/6. This included complete removal of the anterior annulus, nucleus, and posterior annulus. The posterior longitudinal lig ament was removed as were the posterior osteophytes. Foraminotomies were then accomplished bilaterally. This was done using a high speed bob, kerrison rongeurs and curretes Once all of this was accomplished, the curved currette was used to check for any residual compression. The central canal was wide open as were the foramen. A high-speed bur was used to remove the cartilaginous endplates above and below the interspace. Bleeding cancellous bone was exposed. The disc space were measured and appropriate size cage were placed sterilely onto the field. Allograft graft was packed into the cages. The cage was then placed and there was good juxtaposition against the bleeding decorticated surfaces and good distraction of each interspace. The Mifflin pins were removed. Bone wax was used to prevent any bleeding from occurring at the pin sites. The appropriate size anterior cervical locking plate was chosen and bent into gentle lordosis. Two screws were then placed into each of the vertebral bodies at C4, C5 and C6. There was excellent purchase. A final x-ray was done confirming good position of the hardware and Cages. The locking screws were then applied, also with excellent purchase. Following a final copious irrigation, there was good hemostasis and no dural leaks. The carotid pulse was strong. The wounds were then closed in layers using 2-0 Vicryl suture for the platysma muscle, 2-0 Vicryl suture for the subcutaneous tissue, and 4-0 monocryl suture in a subcuticular skin closure. Glue was placed followed by application of a sterile dressing. The drain was hooked to bulb suction. A soft collar was applied. The patient was then carefully returned to the supine position on his hospital bed where he was reversed and extubated and taken to the recovery room having tolerated the procedure well.
--- NOTE | 2024-08-20 09:35 | ANE.PACU2 ---
Inpatient post-anesthesia follow up: Airway intact: Yes Vital signs: Temperature 97.6 F Pulse Rate 82 Respiratory Rate 17 Blood Pressure 164/80 Pulse Oximetry 94 Oxygen Delivery Me thod Room Air Oxygen Flow Rate 6 Fraction of Inspir ed Oxygen Hydration adequate: Yes Nausea and vomiting: No Pain level: 1 Mental status: Baseline
--- NOTE | 2024-08-20 12:40 | XR_ITS ---
WS: [id number] XR cervical spine 3V* [id number] REASON FOR EXAM: or pic, acdf FINDINGS: Anterior plate and screw fixation with interbody fusion devices C4-C6. Surgical appliances are intact and in proper position and alignment. XR/XR cervical spine 3V* [id number] IMPRESSION: Anterior cervical fusion as above.
[2024-08-20] MEDS: HYDROcodone-acetaminophen 10-325 mg Tablet 1 TAB PO (13:54)
[2024-08-20] MEDS: hyDRALAzine 20 mg/mL INJ 1 mL 10 MG IVP (15:07)
--- NOTE | 2024-08-20 16:08 | PC.NURSE ---
received from pacu via stretcher.report received.pt is alert and awake and oriented x 4.c-collar is on.drsg dry and intact.bp 158/81.sr on monitor.oriented to room environment.instructed to notify staff for any pain,if has to get up,or for any concerns at all.pt verb understanding of instructions
[2024-08-20] MEDS: HYDROcodone-acetaminophen 10-325 mg Tablet PO (19:16)
--- NOTE | 2024-08-20 19:19 | PC.NURSE ---
report phoned to constantine on med surg unit.transferred per order to room 271 via w/c at this time
[2024-08-21] VITALS: BP 179/76; PULSE 98; RESP 17; TEMP 36.9; O2SAT 97
[2024-08-21 04:00] VITALS: BP 151/78; PULSE 89; RESP 18; TEMP 36.4; O2SAT 93
[2024-08-21] MEDS: HYDROcodone-acetaminophen 10-325 mg Tablet PO ×2 (04:06→08:25)
[2024-08-21] MEDS: ceFAZolin 2,000 mg SDV 2000 MG IVP (05:21)
[2024-08-21 07:12] VITALS: BP 152/84; PULSE 83; RESP 18; TEMP 36.8; O2SAT 95
--- NOTE | 2024-08-21 07:50 | P.DS_ITS ---
Discharge Providers Date of Admission: 08/20/24 15:29 Date of Discharge: August 21, 2024 Attending Provider at Admission: Sam Orozco DO Attending Provider at Discharge: Sam Orozco DO Primary Care Provider: CRISTÓBAL Quiroga Reason for Visit Reason for Visit: M48.02 Physical Exam Narrative: Patient sitting up comfortably in bed sitting in style in the bed. Only complaint is itching. Discharge Data Studies Completed and Pending Completed Studies During Hospitalization Category Date Time Status XR cervical spine 3V* [id number] Routine Exams 08/20/24 12:40 Completed Pending at discharge Category Date Time Status C-arm Fluoroscopy [id number] Routine Exams 08/20/24 05:47 Taken Radiology Impressions Cervical Spine X-Ray 08/20/24 12:40 IMPRESSION: Anterior cervical fusion as above. Laboratory Results POC Glucose 272 mg/dL (70-110) H 08/21/24 06:24 Vitals Last Vital Signs Temp 98.3 F 08/21/24 07:12 Pulse 83 08/21/24 07:12 Resp 18 08/21/24 07:12 BP 152/84 08/21/24 07:12 Pulse Ox 95 08/21/24 07:12 O2 Del Method Room Air 08/21/24 07:12 O2 Flow Rate 6 08/20/24 08:57 Discharge Plan Discharge Patient Disposition: Home Condition: Stable Prescriptions: New hydrocodone-acetaminophen 10-325 mg tablet 1 tab PO Q4H PRN (Reason: pain) 7 Days Qty: 42 0RF Continued ascorbic acid (vitamin C) 500 mg tablet 500 mg PO BID (DME) blood-glucose meter [OneTouch Ultra2 Meter] Kit See Rx Instructions .Route Qty: 1 0RF Rx Instructions: As directed cholecalciferol (vitamin D3) 125 mcg (5,000 unit) capsule 125 mcg PO DAILY Qty: 1 0RF Rx Instructions: OTC fluticasone propionate [Flonase Allergy Relief] 50 mcg/actuation spray,suspension 1 spray intranasal DAILY Qty: 16 0RF Rx Instructions: administer into each nostril Breztri Aerosphere 160-9-4.8 mcg/actuation HFA aerosol inhaler 2 inh inhalation BID Qty: 10.7 2RF duloxetine [Cymbalta] 30 mg capsule,delayed release(DR/EC) 30 mg PO BID Qty: 60 2RF famotidine [Pepcid AC] 20 mg tablet 20 mg PO BID Qty: 60 2RF rosuvastatin 10 mg tablet 10 mg PO DAILY Qty: 30 5RF tizanidine [Zanaflex] 4 mg tablet 4 mg PO .at bedtime Qty: 30 5RF potassium chloride 10 mEq tablet,ER particles/crystals 10 meq PO DAILY Qty: 30 5RF metoprolol succinate [Toprol XL] 25 mg tablet extended release 24 hr 25 mg PO DAILY Qty: 30 5RF metformin 500 mg tablet extended release 24 hr 2,000 mg PO DAILY Qty: 120 5RF magnesium oxide 400 mg magnesium tablet 800 mg PO DAILY Qty: 180 1RF lisinopril 5 mg tablet 5 mg PO DAILY Qty: 30 5RF Farxiga 10 mg tablet 10 mg PO QAM Qty: 30 5RF (DME) Disposable nebulizer circuit See Rx Instructions .ROUTE .MEDSUPPLY Qty: 1 0RF Rx Instructions: As directed (DME) OneTouch Ultra Test Strip See Rx Instructions .Route Qty: 50 5RF Rx Instructions: one daily (DME) lancets [OneTouch Delica Plus Lancet] 33 gauge misc See Rx Instructions .Route Qty: 100 5RF Rx Instructions: one daily albuterol sulfate 90 mcg/actuation HFA aerosol inhaler 2 puff inhalation Q6H PRN (Reason: shortness of breath or wheezing) Qty: 8.5 2RF ropinirole 1 mg tablet 1 mg PO BID Qty: 60 2RF metoprolol succinate 25 mg tablet extended release 24 hr 25 mg PO DAILY Held ibuprofen [IBU] 800 mg tablet 800 mg PO TID Hold Instructions: Resume on 08/22/24. aspirin 81 mg tablet,chewable 81 mg PO DAILY Hold Instructions: Resume on 08/22/24. Discontinued hydrocodone-acetaminophen 7.5-325 mg tablet See Rx Instructions PO .COMPLEX Rx Instructions: 1/2 to 1 tab every 4-[address] pain management [address] Lang Discharge Order = DC NOW: Discharge Order (Routine); Ordered 08/21/24 Ordered By: Sam Orozco Discharge Diet: Advance as tolerated Discharge Activity: Limit activity as instructed Patient Instructions: Acute Wound Care (DC), Opioid Safety, Post Anesthesia Care, Patient Portal & Shannan Instructions Activity Restrictions/Additional Instructions: Thank you for choosing [facility] for your care! The following is a list of instructions, from your provider, to follow upon your discharge to ensure you have the optimal recovery from your recent injury or surgery. Anterior Cervical Discectomy and Fusion: What to Expect at Home Your Recovery Follow-up care is a sanchez part of your treatment and safety. Be sure to make and go to all appointments, and call your doctor if you are having problems. If you do not already have a follow-up appointment made, call office in the next 1-3 days to make follow up appointment for 2 weeks at [phone]. It is also a good idea to know your test results and keep a list of the medicines you take. You can expect your neck to feel stiff or sore after surgery. This should improve in the weeks after surgery. But it may take 4 to 6 months for you to get better completely. You may have trouble sitting or standing in one position for very long and may need pain medicine in the weeks after your surgery. It may take 4 to 6 weeks to get back to your usual activities, but it may depend on what kind of surgery you had. Your throat will feel sore and it may be difficult to swallow for the first 3 da ys after your surgery. As long as you can get liquids down without difficulty, this should slowly improve, otherwise call our office or seek medical attention if it becomes increasingly difficult to get anything down including liquids. Avoid hot liquids for first 3-5 days. Soothing foods/liquids such as jello, pudding, and luke warm soups are recommended until swallowing improves. Staying elevated will also help, it's advised you keep propped up at while sleeping to help reduce the swelling. You may use an ice pack directly on your incision or around it on the front of your neck, using a cloth to protect your skin; and a heating pad to the back of your neck as needed. Do not use over the counter anti-inflammatory medications (Ibuprofen, Motrin, Aleve, Advil, etc) Taking these meds after having a fusion can delay fusion rates, we recommend you avoid them for the first 3 months after your surgery[address] Dr. Orozco may advise you to work with a physical therapist to strengthen the muscles around your neck and back - this will be discussed at your follow - up appointments. The pain or numbness you were having in your arms before surgery should get better or go away completely. This care sheet gives you a general idea about how long it will take for you to recover. But each person recovers at a different pace. Follow the steps below to get better as quickly as possible. How can you care for yourself at home? Activity ? Rest when you feel tired. Getting enough sleep will help you recover. ? Try to walk each day. Start by walking a little more than you did the day before. Bit by bit, increase the amount you walk. Walking boosts blood flow and helps prevent pneumonia and constipation. Walking may also decrease your muscle soreness after surgery. ? No lifting anything that is more that 5 pounds. This may include heavy grocery bags and milk containers, a heavy briefcase or backpack, cat litter or dog food bags, a child, or a vacuum carbon cleaner. ? Avoid strenuous activities, such as bicycle riding, jogging, weightlifting, or aerobic exercise, until your doctor says it is okay. ? Do not drive until your follow-up visit after your surgery, or until your doctor says it isokay. ? Avoid taking long car trips for 2 to 4 weeks after surgery. Your neck may become tired and painful from sitting too long in one position. ? You will probably need to take 4 to 6 weeks off from work. It depends on the type of work you do and how you feel. ? You may have sex as soon as you feel able, but avoid positions that put stress on your neck or cause pain. Diet ? You can eat your normal diet. If your stomach is upset, try bland, low-fat foods like plain rice, broiled chicken, toast, and yogurt ? Drink plenty of fluids. If you have kidney, heart, or liver disease and have to limit fluids, talk with your doctor before you increase the amount of fluids you drink. ? You may notice that your bowel movements are not regular right after your surgery. This is common. Try to avoid constipation and straining with bowel movements. You may want to take a fiber supplement every day. If you have not had a bowel movement after a couple of days, ask your doctor about taking a mild laxative. Medicines ? Take pain medicines exactly as directed. 1. If Dr. Orozco gave you a prescription medicine for pain, take lt as prescribed. 2. Do not take two or more pain medicines at the same time unless the doctor told you to. Many pain medicines have acetaminophen, which is Tylenol. Too much acetaminophen {Tylenol) can be harmful. 3. If you think your pain pill is making you sick to your stomach: 4. Take your pills after meals (unless your doctor has told you not to). 5. Ask your Dr. for a different pain pill. Incisioncare ? Remove your dressing 48hours after your surgery. Ok to shower and get the incision wet. Do not overtly wash your incision. When done, pad dry, leave open to air thereafter. Avoid creams and ointments directly on your incision. ? Your sutures in the incision will dissolve and fall out on their own. ? Keep the area clean and dry. You may cover it with a gauze bandage if it weeps or rubs against clothing; if you choose to do this, change the dressing everyday. Other instructions ? Use a heating pad, hot water bottle, or gentle massage on your back to reduce stiffness. Avoid putting heat on your incision When should you call for help? ? Call 911 anytime you think you may need emergency care. For example, call if: ? You pass out (lose consciousness). ? You have sudden chest pain and shortness of breath, or you cough upblood. ? You cannot swallow. ? You have severe pain in your neck or back. ? Call your Dr. or seek immediate medical care if: ? You have pain that does not get better after you take pain pills. ? You have loose stitches, or your incision comes open. ? You have blood or fluid draining from the incision. ? You have signs of infection, such as: 1. Increased pain, swelling, warmth, or redness. 2. Red streaks leading from the site. 3. Pus draining from the site. 4. Swollen lymph nodes in your neck or armpits. 5. A fever. ? You have severe pain in your arms. ? You have new or increased weakness or numbness in your arms. ? Watch closely for any changes in your health, and be sure to contact your doctor if: ? You do not have a bowel movement after taking a laxative. Discharge Attestations Time Spent in Discharge Care*: less than 30 min Quality Metrics Clinical Quality Measures [ No reported AMI, CVA or VTE this stay] Coding Level of Care Code Acute Code for Chg Fwd
[2024-08-21 07:55] VITALS: PULSE 86; RESP 16; O2SAT 95
[2024-08-21 08:11] VITALS: PULSE 88
[2024-08-21] MEDS: metoprolol succinate ER (24 HR) 25 mg Tablet PO (08:26)
--- NOTE | 2024-08-21 09:09 | PC.CHAP ---
Pastoral Care Encounter/Spiritual Assessment Type of Contact [] Declined access representative visit [] Patient/Family/Request visit [] Outpatient visit [] Follow-up visit [] Physician referral [] Code/Alert [x] Routine visit [] Staff referral [] Actively dying [] Patient sleeping [x] Family support [] [] Out of room [] Palliative care [] [] Receiving care in room [] Pre-surgical visit [] Trauma [] Long length of stay [] ICU visit [] Other: Relational/Emotional Strength [x] Patient feels connected with others/family/visitors/staff [] Distress [] Loneliness/isolation [] Abandonment Spirituality of Patient [x] Person of Mari [] Attends Orthodoxy of their Mari [x] Believes in Prayer [] Reads Bible or Restoration materials [] There are Spiritual issues to be addressed Websphere Message Broker Developer Interventions [x] Prayer [x] Active listening [] Non-anxious presence [x] Spiritual/emotional support [] Crisis/trauma care [] Spiritual counseling [] Bereavement support [] Provided bereavement packet [] Provided Bible/devotional materials [] Provided toy/stuffed animal, coloring book to patient or family member [] Provided Communion [] Anointing/Gage [] Salvation [x] Completed spiritual assessment [] Other: Impact on Illness or Injury [] Angry [] Fearful [] Anxious [] Often cries [] Exhaustion [] Unable to work [] Unable to attend moravian [] Unable to walk/stand [] Unable to read [] Unable to drive [] Unable to eat/drink [] Unable to sleep [] Unable to be with family [] Patient intubated [] Other: Summary Time spent with patient 5 min
[2024-08-21 10:38] VITALS: BP 152/89; PULSE 88; RESP 16; TEMP 36.8; O2SAT 95
== END 2024-08-21 10:40 | disposition home or self-care (01) ==
LOC: CSU 15:29 → MEDSURG 19:24
PROVIDERS: Admitting Provider Orthopaedic Surgery; PCP Nurse Practitioner; Visit Provider Orthopaedic Surgery
PROC: 0RB30ZZ Excision of Cervical Vertebral Disc, Open Approach (ICD-10-PCS; CPT 22551; principal; 2024-08-20 07:00)
DX: M48.02 Spinal stenosis, cervical region (principal); G99.2 Myelopathy in diseases classified elsewhere; Z79.84 Long term (current) use of oral hypoglycemic drugs; Z79.82 Long term (current) use of aspirin; J44.9 Chronic obstructive pulmonary disease, unspecified; I10 Essential (primary) hypertension; K21.9 Gastro-esophageal reflux disease without esophagitis; E11.9 Type 2 diabetes mellitus without complications; Z87.891 Personal history of nicotine dependence; E78.5 Hyperlipidemia, unspecified
CPT/HCPCS: 22551; 22552; 22853 ×2; 20930; 22845; 36416; 72040; 76000; 82962; 94640; 97110; 97161; C1713; C1763; C9359; G0378; J0330; J0360; J0690; J1100; J1171; J1885; J2250; J2405; J2704; J3010; J3490; J7030; J7626; J9999

== ENCOUNTER → 2024-08-21 10:56 | Outpatient (BNVA) | payer MEDICARE, MEDICAID, SELFPAY | PROVIDERS: PCP Nurse Practitioner; Visit Provider Orthopaedic Surgery | DX: M25.511 Pain in right shoulder (principal); M25.512 Pain in left shoulder; G89.29 Other chronic pain | CPT/HCPCS: 99213 ==

== ENCOUNTER → 2024-08-30 08:22 | Outpatient (BNVA) | payer MEDICARE, MEDICAID, SELFPAY | PROVIDERS: PCP Nurse Practitioner; Visit Provider Orthopaedic Surgery | DX: Z98.890 Other specified postprocedural states (principal); Z98.1 Arthrodesis status | CPT/HCPCS: 99024 ==

== ENCOUNTER → 2024-09-04 11:08 | Outpatient (BNVA) | payer MEDICARE, MEDICAID, SELFPAY | PROVIDERS: PCP Nurse Practitioner; Referring Provider Psychiatry & Neurology Neurology; Visit Provider Psychiatry & Neurology Neurology | DX: R20.2 Paresthesia of skin (principal); M79.601 Pain in right arm; M79.602 Pain in left arm; M25.511 Pain in right shoulder; M25.512 Pain in left shoulder; G89.29 Other chronic pain; M54.2 Cervicalgia | CPT/HCPCS: 95911; 95912 ==

== ENCOUNTER → 2024-09-12 14:03 | Outpatient (BNVA) | payer MEDICARE, MEDICAID, SELFPAY | PROVIDERS: PCP Nurse Practitioner; Visit Provider Internal Medicine Cardiovascular Disease | DX: R00.2 Palpitations (principal); I35.0 Nonrheumatic aortic (valve) stenosis; I10 Essential (primary) hypertension; E78.2 Mixed hyperlipidemia; E11.65 Type 2 diabetes mellitus with hyperglycemia; Z79.84 Long term (current) use of oral hypoglycemic drugs; R00.0 Tachycardia, unspecified; J42 Unspecified chronic bronchitis; Z79.82 Long term (current) use of aspirin; Z87.891 Personal history of nicotine dependence; R06.09 Other forms of dyspnea; R55 Syncope and collapse | CPT/HCPCS: 99204 ==

== ENCOUNTER → 2024-09-20 13:35 | Outpatient (BNVA) | payer MEDICARE, MEDICAID, SELFPAY | PROVIDERS: PCP Nurse Practitioner; Visit Provider Orthopaedic Surgery | DX: G56.22 Lesion of ulnar nerve, left upper limb (principal) | CPT/HCPCS: 99214 ==

== ENCOUNTER → 2024-10-02 13:16 | Outpatient (BNVA) | payer MEDICARE, MEDICAID, SELFPAY | PROVIDERS: PCP Nurse Practitioner; Visit Provider Orthopaedic Surgery | DX: Z98.890 Other specified postprocedural states (principal); Z98.1 Arthrodesis status | CPT/HCPCS: 72040; 99024 ==

== ENCOUNTER 2024-10-11 12:30 | Outpatient (CLI) | payer MEDICARE, MEDICAID, SELFPAY ==
--- NOTE | 2024-10-11 12:45 | USCV_ITS ---
Chula Lawler Age: 59 Gender: F : 1965 Exam Date: 10/11/2024 12:47 Ordering Phys: Zina Trinidad MD ([email or web address]) Technologist: REGINE Exam Location[place] [facility] [place] Indication: BP: 137 / 96 HR: 65 Rhythm: Sinus Technical Quality: Adequate MEASUREMENTS (Male / Female) Normal Values 2D ECHO LV Diastolic Diameter PLAX 4.7 cm 4.2 - 5.9 / 3.9 - 5.3 cm IVS Diastolic Thickness 0.8 cm 0.6 - 1.0 / 0.6 - 0.9 cm IVS Systolic Thickness 1.7 cm LVPW Diastolic Thickness 1.3 cm 0.6 - 1.0 / 0.6 - 0.9 cm LVPW Systolic Thickness 1.6 cm LVOT Diameter 2.0 cm LV Ejection Fraction 2D Teich 55.0 % LV Ejection Fraction MOD 4C 65.3 % LV Ejection Fraction MOD 2C 62.3 % LV Ejection Fraction 2C AL 63.5 % LA Diameter 3.7 cm RA Systolic Volume 4C AL 41.2 ml RA Systolic Volume 4C MOD 39.6 ml LA Sys Volume AL 58.0 cm cubed LA Sys Volume Index AL 25.3 cm cubed/m squared Aorta at Sinotubular Diameter 2.2 cm IVC Diameter 1.7 cm M-MODE LA Ao Ratio MM 1.8 AV Cusp Separation MM 2.0 cm DOPPLER AV Peak Velocity 205.0 cm/s LVOT Peak Velocity 115.0 cm/s AV Area Cont Eq vti 1.9 cm squared AV Area Cont Eq pk 1.7 cm squared MV Peak Velocity 99.0 cm/s MV Area PHT 3.4 cm squared Mitral E to A Ratio 0.7 TV Peak Velocity 231.5 cm/s TR Peak Velocity 260.0 cm/s TR Peak Gradient 27.0 mmHg TV Peak E Velocity 70.0 cm/s PV Peak Velocity 110.0 cm/s FINDINGS Left Ventricle Normal LV size and ejection fraction of 62%. Moderate hypokinesis of the basal and mid inferior wall segments. Right Ventricle Normal right ventricular size and systolic function. Right Atrium Normal right atrial size. Left Atrium Mildly increased left atrial size. Mitral Valve Minimally thickened . Aortic Valve Thickened aortic valve. The leaflets could not be visualized well.trace to mild aortic valve regurgitation. Tricuspid Valve No gross abnormalities no Pulmonic Valve No gross abnormalities Pericardium Trace to small pericardial effusion. Aorta Normal aortic annulus size. IVC Normal IVC size CONCLUSIONS Thickened aortic valve with possible mild stenosis. Cannot exclude bicuspid valve. The leaflets morphology could not be delineated Trace to mild aortic valve regurgitation. Normal LV size and ejection fraction of 62%. Moderate hypokinesis of the basal and mid inferior wall segments. Mildly increased left atrial size. Normal right ventricular size and systolic function. Trace to small pericardial effusion. Comparison with the previous study is difficult because of the difference in the technical quality. Consider LOVE, to better evaluate aortic valve. Dr Zina Trinidad MD FAC (Electronically Signed) Final Date: 14 October 2024 22:21 S
== END 2024-10-11 12:31 | disposition home or self-care (01) ==
LOC: RAD 12:31
PROVIDERS: PCP Nurse Practitioner; Visit Provider Internal Medicine Cardiovascular Disease
DX: R06.09 Other forms of dyspnea (principal); I35.2 Nonrheumatic aortic (valve) stenosis with insufficiency; I51.89 Other ill-defined heart diseases; I51.7 Cardiomegaly; I31.39 Other pericardial effusion (noninflammatory)
CPT/HCPCS: 93306

== ENCOUNTER 2024-10-15 16:28 | Emergency (ER) | payer MEDICARE, MEDICAID, SELFPAY ==
--- OUTSIDE RECORDS SUMMARY | 2016-08-09 10:07 | XMS_ITS | Continuity of Care Document ---
Author Organization [employer] Address [address] [place] [address] Phone Care Team Providers Care Instrumentation And Controls Technician Name Role Phone Priscila Ramirez Unavailable Unavailable Medications Medication Instructions Dosage Effective Dates (start - stop) Status Comments lisinopril 20 mg-hydrochlorothiaz roosevelt 12.5 mg tablet take 1 tablet by oral route every day 1.00 tablet - Active Advance Directives Directive Yes / No Effective Date File Name No Information Encounters Encounter Description Practice Location Reason(s) For Visit Diagnoses Date Provider Providers Copied on Encounter [facility], [address], [place], [place], [id number], [place] tel:[phone] [facility] No Information Nilesh Francois. [address], [place], [place], [id number], [place]. tel:[phone] Family History Family Member Type Diagnosis Age At Onset No Information Payers Payer name Insurance type Covered democrat ID Authoriza tion(s) No Information Social History Type Description Quantity Date Captured Comments Sex Female Smoking Status No Information Chief Complaint And Reason For Visit No Information Reason For Referral Reason For Referral No Information History Of Present Illness Encounter Date Complaint History Of Prese nt Illness No Information Functional Status Date Functional Assessmen t No Information Instructions Date Instruction Additional Infor mation No Information Assessments Type Assessment Date No Information Patient Care Teams Name Effective Dates (start - stop) Status Members No Information
--- OUTSIDE RECORDS SUMMARY | 2024-10-15 16:32 | XMS_ITS | Clinical Summary ---
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
--- OUTSIDE RECORDS SUMMARY | 2024-10-15 16:33 | XMS_ITS | Encounter Summary ---
Author Organization [facility] Address [address] [place] [address] Care Team Providers Care Plug Making Operator Name Role Phone Unavailable Primary Care Provider Unavailabl e Encounter Details Date Type Department Care Team (Late st Contact Info) Description 08/02/2011 Ancillary Orders [facility] [place] [address] [place] [address] Hypertension Social History Tobacco Use Types Packs/Day Years Used Date Smoking Tobacco: Never Assessed Comments Unknown Sex and Gender Information Value Date Recorded Sex Assigned at Not on file 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 Gender Identity Not on file Sexual Orientation Not on file documented as of this encounter Plan of Treatment Not on file documented as of this encounter Procedures Procedure Name Priority Date/Time Associated Diagnosis Comments BASIC METABOLIC PANEL Routine 08/02/2011 7:27 PM CDT HYPERTENSION [ICD-9-CM] documented in this encounter Results * (ABNORMAL) BASIC METABOLIC PANEL (08/02/2011 7:27 PM CDT) SODIUM 139 136 - 145 mmol/L 08/02/2011 11:55 PM CDT [facility] [place] POTASSIUM 4.4 3.5 - 5.1 mmol/L 08/02/2011 11:55 PM CDT [facility] [place] CHLORIDE 102 98 - 107 mmol/L 08/02/2011 11:55 PM CDT [facility] [place] CO2 29 21 - 32 mmol/L 08/02/2011 11:55 PM CDT [facility] [place] CALCIUM 9.5 8.5 - 10.1 mg/dL 08/02/2011 11:55 PM CDT [facility] [place] BUN 11 7 - 18 mg/dL 08/02/2011 11:55 PM CDT [facility] [place] CREATININE 1.00 0.60 - 1.30 mg/dL 08/02/2011 11:55 PM CDT [facility] GLUCOSE 119(H) 74 - 106 mg/dL 08/02/2011 11:55 PM CDT [facility] GFR 60 >=60 mL/min/1.7 3 sq meter 08/02/2011 11:55 PM CDT [facility] GFR, 73 >=60 mL/min/1.7 3 sq meter 08/02/2011 11:55 PM CDT [facility] Blood specimen (specimen) 08/02/2011 7:27 PM CDT 08/02/2011 11:23 PM CDT Narrative [facility] - 08/02/2011 11:55 PM CDT eGFR has not been validated for use in the elderly (> 70 years of age), women, patients with serious co-morbid conditions, or persons with extremes of body size or muscle mass and should also be interpreted with caution in patients with acute kidney failure, dialysis dependant patients, patients reporting exceptional dietary intake (e.g. vegetarian diet, high protein diets, creatine supplementation), and patients with severe liver disease. Based on National Kidney Disease Education Program us Rishabh Genao DO CHEMISTRY ORDERABLES Final Resu lt [facility] CLIA # [id number] [address] [place] [id number] documented in this encounter Visit Diagnoses Diagnosis Hypertension Unspecified essential hypertension documented in this encounter
--- NOTE | 2024-10-15 16:37 | XRR_ITS ---
PROCEDURE INFORMATION: Exam: XR Chest Exam date and time: 10/15/2024 4:49 PM Age: 59 years old Clinical indication: Shortness of breath; Prior surgery; Surgery date: 6+ months; Surgery type: Cervical spine fusion TECHNIQUE: Imaging protocol: Radiologic exam of the chest. Views: 1 view. COMPARISON: CR XR chest 2V* [id number] 07/28/2021 1:56 PM FINDINGS: Lungs: Opacities in the left lung base. The right lung is clear. Pleural spaces: No pneumothorax. No right pleural effusion. Small left pleural effusion. Heart/Mediastinum: Unremarkable. No cardiomegaly. Bones/joints: Unremarkable. XR/XR chest 1V portable [id number] IMPRESSION: Opacities in the left lung base with a left pleural effusion. Differential favors pneumonia in the appropriate clinical setting. Other considerations include aspiration or atelectasis.
[2024-10-15 16:44] VITALS: BP 137/99; PULSE 83; TEMP 36.7; O2SAT 95; BMI 36.8
--- NOTE | 2024-10-15 16:47 | ECG_ITS ---
[facility] Date: 2024-10-15 Pat Name: Chula Lawler Department: Room: Gender: Female Creative Strategist: : 1965 Requested By: Marlen Dixon Order Number: [id number] Diamond MD: Quentin Moralez M.D. Measurements Intervals Gibson Rate: 89 P: 44 OK: 140 QRS: 72 QRSD: 81 T: 75 QT: 352 QTc: 428 Interpretive Statements SINUS RHYTHM Compared to ECG 08/08/2024 09:12:31 No significant changes Electronically Signed On 10-17-2024 20:48:56 CDT by Quentin Moralez M.D. [email or web address]
--- NOTE | 2024-10-15 16:49 | W.ED.URI ---
HPI - URI/Sore Throat General: Chief Complaint: Upper Respiratory Infection Stated Complaint: trouble talking, slight sob Time Seen by Provider: 10/15/24 16:36 History of Present Illness: 59-year-old female with a history of moderate aortic stenosis, excessive behaviors, chronic back pain, diabetes, hypertension and hyperlipidemia who presents emergency room with shortness of breath and difficulty speaking. She has had cough. She is mildly short of breath. She has a little bit of wheeze. Says been going on for a month but she gotten better briefly and then now she is bad again. Vital signs are normal on presentation. No chest pain. No abdominal pain. No nausea vomiting Related Data Home Medications ?Medication ?Instructions ?Recorded ?Confirmed ascorbic acid (vitamin C) 500 mg 500 mg PO BID 10/16/20 10/02/24 tablet aspirin 81 mg chewable tablet 81 mg PO DAILY 08/08/24 10/02/24 ibuprofen 800 mg tablet (IBU) 800 mg PO TID 08/08/24 10/02/24 Held on 08/21/24. Instructions: Resume on 08/22/24. Previous Rx's ?Medication ?Instructions ?Recorded blood-glucose meter (PalindromXuch #1 ea 12/11/20 Ultra2 Meter kit) cholecalciferol (vitamin D3) 125 125 mcg PO DAILY #1 cap 11/09/21 mcg (5,000 unit) capsule Disposable nebulizer circuit #1 ea 04/12/24 fluticasone propionate 50 1 spray intranasal DAILY #16 grams 05/09/24 mcg/actuation nasal spray,suspension (Flonase Allergy Relief) blood sugar diagnostic ([employer] Kingdom StudiosTouch #50 ea 06/14/24 Ultra Test strips) lancets 33 gauge ([employer] Kingdom [employer]Touch Delica #100 ea 06/14/24 Plus Lancet) Bone Growth Stimulator #1 ea 09/05/24 albuterol sulfate 90 mcg/actuation 2 puff inhalation Q6H PRN 09/17/24 aerosol inhaler shortness of breath or wheezing #8.5 grams budesonide 160 mcg-glycopyr 9 2 inh inhalation BID #10.7 grams 09/17/24 mcg-formot 4.8 mcg/actuation HFA inhaler (Breztri Aerosphere) dapagliflozin propanediol 10 mg 10 mg PO QAM #30 tabs 09/17/24 tablet (Farxiga) diclofenac sodium 1 % topical gel 2 g topical QID #100 grams 09/17/24 (Voltaren Arthritis Pain) duloxetine 60 mg capsule,delayed 60 mg PO BID #60 caps 09/17/24 release famotidine 20 mg tablet (Pepcid AC) 20 mg PO BID #60 tabs 09/17/24 magnesium oxide 800 mg (2 x 400 mg magnesium) PO 09/17/24 DAILY #180 tabs metformin 500 mg tablet,extended 2,000 mg (4 x 500 mg) PO DAILY 09/17/24 release 24 hr #120 tabs metoprolol succinate 25 mg 25 mg PO DAILY #30 tabs 09/17/24 tablet,extended release 24 hr (Toprol XL) potassium chloride 10 mEq 10 meq PO DAILY #30 tabs 09/17/24 tablet,extended release(part/cryst) ropinirole 1 mg tablet 1 mg PO BID #60 tabs 09/17/24 rosuvastatin 10 mg tablet 10 mg PO DAILY #30 tabs 09/17/24 tizanidine 4 mg tablet (Zanaflex) 4 mg PO .at bedtime #30 tabs 09/17/24 lisinopril 10 mg tablet 10 mg PO DAILY #30 tabs 09/23/24 doxycycline monohydrate 100 mg 100 mg PO BID 10 days #20 caps 10/15/24 capsule hydrocodone 5 mg-acetaminophen 325 1 tab PO Q6H pain 7 days #28 tabs 10/15/24 mg tablet prednisone 20 mg tablet 60 mg (3 x 20 mg) PO DAILY #20 tabs 10/15/24 Allergies Allergy/AdvReac Type Severity Reaction Status Date / Time No Known Allergies Allergy Verified 10/15/24 16:49 Review of Systems Narrative: Constitutional symptoms: Negative except as documented in HPI. Skin symptoms: Negative except as documented in HPI. Eye symptoms: Negative except as documented in HPI. ENMT symptoms: Negative except as documented in HPI. Respiratory symptoms: Negative except as documented in HPI. Cardiovascular symptoms: Negative except as documented in HPI. Gastrointestinal symptoms: Negative except as documented in HPI. Genitourinary symptoms: Negative except as documented in HPI. Musculoskeletal symptoms: Negative except as documented in HPI. Neurologic symptoms: Negative except as documented in HPI. Psychiatric symptoms: Negative except as documented in HPI. Endocrine symptoms: Negative except as documented in HPI. PFSH ED PFSH: Medical History (Updated 10/15/24 @ 18:25 by Marlen Carpio MD) Aortic stenosis, moderate Echo Jun, 2021 Obsessive behaviors Degenerative disc disease, lumbar Chronic back pain Diabetes Pneumonia due to COVID-19 virus History of nicotine use Chronic bronchitis, unspecified chronic bronchitis type Hyperlipemia, mixed Primary hypertension Surgical History History of fusion of cervical spine 08/20/24 at [facility] History of hysterectomy Family History Other Diabetes Hypertension Denies family history of Cancer Stroke Social History Smoking and tobacco/nicotine status: former use of tobacco/nicotine Second hand smoke exposure: No Alcohol intake: current Alcohol intake frequency: holidays/special occasions only Substance/Drug Use: unknown Adopted: No Caregiver/support person: No Lives independently: Yes Household members: spouse Housing: Manufactured/Mobile home Marital status: Number of children: 5 service: No Current occupational status: unemployed Do you think of yourself as: Straight/Heterosexual Current gender identity: Female Physical Exam Narrative: EXAM NARRATIVE: General: Alert, no acute distress. Skin: Warm, dry. Head: Normocephalic, atraumatic. Neck: Supple, trachea midline. Eye: Extraocular movements are intact. Ears, nose, mouth and throat: Oral mucosa moist. Cardiovascular: Regular rate and rhythm, Normal peripheral perfusion. Respiratory: some expiratory wheeze, mild increased wob, breath sounds are equal, Symmetrical chest wall expansion. Gastrointestinal: Soft, Nontender, Non distended Musculoskeletal: Normal ROM, no deformity. Neurological: Alert and oriented, No focal neurological deficit observed. Psychiatric: Cooperative, appropriate mood & affect. Course Vital Signs: Vital signs: Vital Signs Temperature 98.0 F 10/15/24 16:44 Pulse Rate 83 10/15/24 16:44 Blood Pressure 137/99 10/15/24 16:44 Pulse Oximetry 95 10/15/24 16:44 Oxygen Delivery Me thod Room Air 10/15/24 16:44 MDM - URI/Sore Throat Medical Decision Making Differential diagnosis for patient with shortness of breath includes but is not limited to and based on the above HPI, review of systems and physical exam: Pneumonia. Bronchitis. Asthma or COPD with acute exacerbation. Acute coronary syndrome / AK. Pulmonary embolism. Anxiety. Congestive heart failure. Viral infections including influenza and Covid-19. Atrial fibrillation. Anxiety. Pleural effusion. Pneumothorax. Orders placed to evaluate differential diagnosis based on the above differential, HPI and physical exam EKG: Time 1647. Rate 89 normal sinus rhythm, No ST-T changes, no ectopy, normal DC & QRS intervals, This was reviewed and interpreted by myself the ER physician at 1650 Chest x-ray: Effusion and possible mild infiltrate versus atelectasis. No pneumothorax. This was reviewed and interpreted by myself the emergency room physician. I also reviewed the radiology report. Lab Review: Laboratory results were reviewed and interpreted by myself the emergency room physician. No leukocytosis. No anemia. No renal failure. No flu COVID or RSV I reviewed the patient's medical record. Reexamination: Patient remained stable. No increased work of breathing. No altered mental status. No focal motor deficits. Assessment and plan: COPD with acute exacerbation Community-acquired pneumonia ?First dose p.o. Doxy and IM Decadron in the emergency room here today. - Discharged home - Discussed plan with patient. Answered any questions. - Evaluation and treatment of this problem were appropriate in the emergency setting. Lab Data 10/15/24 17:15 10/15/24 17:15 Radiology Impressions Chest X-Ray 10/15/24 16:37 IMPRESSION: Opacities in the left lung base with a left pleural effusion. Differential favors pneumonia in the appropriate clinical setting. Other considerations include aspiration or atelectasis. Laboratory Results WBC 8.33 10^3/uL (3.29-11.43) 10/15/24 17:15 RBC 4.31 10^6/uL (3.85-5.65) 10/15/24 17:15 Hgb 12.40 g/dL (11.27-16.99) 10/15/24 17:15 Hct 39.0 % (36-47) 10/15/24 17:15 MCV 90.5 fl (85-98) 10/15/24 17:15 MCH 28.8 pg (27-33) 10/15/24 17:15 MCHC 31.8 g/dL (30-55) 10/15/24 17:15 RDW 13.1 % (12.1-15.1) 10/15/24 17:15 Plt Count 293 10^3/cmm (157-399) 10/15/24 17:15 MPV 10.4 fL (7.4-10.4) 10/15/24 17:15 Neut % (Auto) 54.4 % 10/15/24 17:15 Lymph % (Auto) 32.7 % 10/15/24 17:15 Bollinger % (Auto) 5.9 % 10/15/24 17:15 Eos % (Auto) 6.6 % 10/15/24 17:15 Baso % (Auto) 0.2 % 10/15/24 17:15 Neut # (Auto) 4.53 10^3/uL (1.8-7.7) 10/15/24 17:15 Lymph # (Auto) 2.7 10^3/uL (0.8-4.8) 10/15/24 17:15 Bollinger # (Auto) 0.5 10^3/uL (0.2-0.9) 10/15/24 17:15 Eos # (Auto) 0.6 10^3/uL (0.0-0.8) 10/15/24 17:15 Baso # (Auto) 0.0 10^3/uL (0.0-0.1) 10/15/24 17:15 Nucleated RBC % (auto) 0 % 10/15/24 17:15 Nucleated RBCs # 0.0 /100WBC 10/15/24 17:15 Sodium 142 mmol/L (136-145) 10/15/24 17:15 Potassium 3.9 mmol/L (3.5-5.1) 10/15/24 17:15 Chloride 104 mmol/L (98-107) 10/15/24 17:15 Carbon Dioxide 30 mmol/L (22-29) H 10/15/24 17:15 Anion Gap 11.9 (5-19) 10/15/24 17:15 BUN 10 mg/dL (6-20) 10/15/24 17:15 Creatinine 0.7 mg/dL (0.5-0.9) 10/15/24 17:15 GFR Calculation 85.9 mL/min (90-130) L 10/15/24 17:15 Glucose 101 mg/dL (65-115) 10/15/24 17:15 Calculated Osmolality 293 mOsm/kg (285-295) 10/15/24 17:15 Lactic Acid 0.9 mmol/L (0.5-2.2) 10/15/24 17:15 Calcium 9.2 mg/dL (8.5-10.5) 10/15/24 17:15 Total Bilirubin 0.2 mg/dL (0.15-1.2) 10/15/24 17:15 AST 12 U/L (0-32) 10/15/24 17:15 ALT 12 U/L (0-33) 10/15/24 17:15 Alkaline Phosphatase 78 U/L (35-105) 10/15/24 17:15 Troponin T Baseline 10 ng/L (0-10) 10/15/24 17:15 NT-Pro-B Natriuret Pep 309 pg/mL (0-125) H 10/15/24 17:15 Total Protein 6.6 g/dL (6.6-8.7) 10/15/24 17:15 Albumin 4.1 g/dL (3.5-5.2) 10/15/24 17:15 Globulin 2.5 g/dL (1.3-4.6) 10/15/24 17:15 Influenza A (PCR) Negative (Negative) 10/15/24 17:39 Influenza Type B (PCR) Negative (Negative) 10/15/24 17:39 RSV (PCR) Negative (Negative) 10/15/24 17:39 SARS-CoV-2 (PCR) Negative (Negative) 10/15/24 17:39 All radiology interpretation(s) finalized by discharge Discharge Plan Discharge Patient Disposition: Home Clinical Impression: Community acquired bacterial pneumonia, COPD with acute exacerbation, Laryngitis Condition: Stable Prescriptions: New prednisone 20 mg tablet 60 mg PO DAILY Qty: 20 0RF Rx Instructions: 3 tabs (60 mg) x 3 days. 2 tabs (40 mg) x 3 days. 1 tab (20 mg) x 3 days. 1/2 tab (10 mg) x 4 days doxycycline monohydrate 100 mg capsule 100 mg PO BID 10 Days Qty: 20 0RF No Action ascorbic acid (vitamin C) 500 mg tablet 500 mg PO BID (DME) blood-glucose meter [Grou[employer] Ultra2 Meter] Kit See Rx Instructions .Route Qty: 1 0RF Rx Instructions: As directed cholecalciferol (vitamin D3) 125 mcg (5,000 unit) capsule 125 mcg PO DAILY Qty: 1 0RF Rx Instructions: OTC fluticasone propionate [Flonase Allergy Relief] 50 mcg/actuation spray,suspension 1 spray intranasal DAILY Qty: 16 0RF Rx Instructions: administer into each nostril ibuprofen [IBU] 800 mg tablet 800 mg PO TID aspirin 81 mg tablet,chewable 81 mg PO DAILY albuterol sulfate 90 mcg/actuation HFA aerosol inhaler 2 puff inhalation Q6H PRN (Reason: shortness of breath or wheezing) Qty: 8.5 2RF Breztri Aerosphere 160-9-4.8 mcg/actuation HFA aerosol inhaler 2 inh inhalation BID Qty: 10.7 2RF diclofenac sodium [Voltaren Arthritis Pain] 1 % gel 2 g topical QID Qty: 100 2RF Rx Instructions: apply to single elbow, wrist or hand; for hand includes palm/fingers/back of hand Farxiga 10 mg tablet 10 mg PO QAM Qty: 30 5RF duloxetine 60 mg capsule,delayed release(DR/EC) 60 mg PO BID Qty: 60 2RF famotidine [Pepcid AC] 20 mg tablet 20 mg PO BID Qty: 60 2RF magnesium oxide 400 mg magnesium tablet 800 mg PO DAILY Qty: 180 1RF metformin 500 mg tablet extended release 24 hr 2,000 mg PO DAILY Qty: 120 5RF metoprolol succinate [Toprol XL] 25 mg tablet extended release 24 hr 25 mg PO DAILY Qty: 30 5RF potassium chloride 10 mEq tablet,ER particles/crystals 10 meq PO DAILY Qty: 30 5RF ropinirole 1 mg tablet 1 mg PO BID Qty: 60 2RF rosuvastatin 10 mg tablet 10 mg PO DAILY Qty: 30 5RF tizanidine [Zanaflex] 4 mg tablet 4 mg PO .at bedtime Qty: 30 5RF (DME) Disposable nebulizer circuit See Rx Instructions .ROUTE .MEDSUPPLY Qty: 1 0RF Rx Instructions: As directed (DME) OneTouch Ultra Test Strip See Rx Instructions .Route Qty: 50 5RF Rx Instructions: one daily (DME) lancets [OneTouch Delica Plus Lancet] 33 gauge misc See Rx Instructions .Route Qty: 100 5RF Rx Instructions: one daily (DME) Bone Growth Stimulator See Rx Instructions .Route .MEDSUPPLY Qty: 1 0RF Rx Instructions: As directed lisinopril 10 mg tablet 10 mg PO DAILY Qty: 30 5RF hydrocodone-acetaminophen 5-325 mg tablet 1 tab PO Q6H 7 Days Qty: 28 0RF Discharge Orders: Discharge ED (Routine); Ordered 10/15/24 Ordered By: Marlen Carpio Referrals: Lupillo Fisher FNP-C [Primary Care Provider, Family Practice] Discharge Diet: Usual diet Discharge Activity: Increase activity as tolerated Patient Instructions: Opioid Safety, Pain Management, Patient Portal & Shannan Instructions Activity Restrictions/Additional Instructions: If after this round of antibiotics and steroids you continue to have difficulty speaking you likely need to be evaluated by ENT. You should see your primary care provider and they can refer you. Thank you for choosing [facility] for your healthcare needs today. You have been screened and evaluated and felt safe for discharge. Health conditions do change or evolve sometimes and as such it is important that you follow up with your Primary Doctor to be re checked, 3-5 days is a general good time frame for follow up. You are always welcome to return to the ED for re assessment if your symptoms are worsening or you have new concerns Print Language: Spanish Coding Level of Care Code ED Internet Systems Administrator for Júnior Gardner
[2024-10-15 17:46] LABS: Hematocrit 39.0 % (36-47); Hemoglobin 12.40 g/dL (11.27-16.99); Mean Corpuscular HGB Conc 31.8 g/dL (30-55); Mean Corpuscular Hemoglobin 28.8 pg (27-33); Mean Corpuscular Volume 90.5 fl (85-98); Nucleated Red Blood Cells % 0 %; Platelet Count 293 10^3/cmm (157-399); Red Blood Count 4.31 10^6/uL (3.85-5.65); White Blood Count 8.33 10^3/uL (3.29-11.43)
[2024-10-15 17:55] LABS: Lactic Sepsis W/Reflex 0.9 mmol/L (0.5-2.2)
[2024-10-15 17:59] LABS: Troponin(5th) Baseline 10 ng/L (0-10)
[2024-10-15 18:08] LABS: Alanine Aminotransferase 12 U/L (0-33); Albumin Level 4.1 g/dL (3.5-5.2); Alkaline Phosphatase 78 U/L (35-105); Anion Gap 11.9 (5-19); Aspartate Amino Transferase 12 U/L (0-32); Blood Urea Nitrogen 10 mg/dL (6-20); Calcium 9.2 mg/dL (8.5-10.5); Carbon Dioxide 30 mmol/L (22-29); Chloride 104 mmol/L (98-107); Creatinine Clr Calc Pharmacy 110.0784; Globulin 2.5 g/dL (1.3-4.6); Glucose 101 mg/dL (65-115); NT Pro B Type Natriuretic Pept 309 pg/mL (0-125); Osmolality Calculated 293 mOsm/kg (285-295); Potassium 3.9 mmol/L (3.5-5.1); Sodium 142 mmol/L (136-145); Total Protein 6.6 g/dL (6.6-8.7)
[2024-10-15 18:36] LABS: Respiratory Syncytial Virus Ce NEGATIVE (Negative); SARS-CoV-2 PCR NEGATIVE (Negative)
== END 2024-10-15 18:59 | disposition home or self-care (01) ==
PROVIDERS: Emergency Provider Emergency Medicine; PCP Nurse Practitioner
DX: J15.9 Unspecified bacterial pneumonia (principal); J44.1 Chronic obstructive pulmonary disease with (acute) exacerbation; J04.0 Acute laryngitis; Z11.52 Encounter for screening for COVID-19; Z87.891 Personal history of nicotine dependence; I10 Essential (primary) hypertension; E78.2 Mixed hyperlipidemia; E11.9 Type 2 diabetes mellitus without complications
CPT/HCPCS: 36415; 71045; 80053; 83605; 83880; 84484; 85025; 87040; 87637; 93005; 96372; 99285; J1100; J9999

== ENCOUNTER 2024-10-31 08:06 | Outpatient (CLI) | payer MEDICARE, MEDICAID, SELFPAY ==
[2024-10-31 08:08] VITALS: BMI 36.6
--- NOTE | 2024-10-31 08:10 | ECG_ITS ---
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 Interpretive Statements Procedure: A total of 0.4 mg of Lexiscan was infused over 20 seconds. The stress phase was continued for a total of 5 minutes. Sestamibi was injected 20 seconds after the Lexiscan infusion. Stress test data: Baseline blood pressure was 142/93 with a heart rate of 78 bpm. After Lexiscan injection the heart rate increased to 95 bpm and blood pressure decreased to 135/76 gradually. At the end of recovery blood pressure was 142/80 and the heart rate was 82 bpm. Baseline EKG showed normal sinus rhythm with septal T wave inversions. Stress EKG showed no ischemic changes. Conclusion: 1. Normal EKG response to Lexiscan infusion Without ischemia 2. No Lexiscan induced chest pain or cardiac arrhythmia. 3. Normal blood pressure and heart rate response. 4. Nuclear myocardial perfusion scan pending; see separate report. Electronically Signed On 10-31-2024 18:21:53 CDT by Quentin Moralez M.D. [email or web address]
--- NOTE | 2024-10-31 08:10 | NMCV_ITS ---
NM vikas perf SPECT r/s* [id number] Chula Lawler Age: 59 Gender: F : 1965 Exam Date: 10/31/2024 09:10 Ordering Phys: Zina Trinidad MD ([email or web address]) Technologist: JEFF Vergara Exam Location: [facility] Indications: cp STRESS TEST Please see separate stress test report in [facility] for full findings IMAGE PROTOCOL Rest/Stress 1 Lexiscan Day Radiopharmaceutical Dose (mCi) Administration Site Administered by Rest: Tc-99m 10.5 IV JEFF Vergara Sestamibi Stress:Tc-99m 32.7 IV JEFF Luna Sestamibi Rest: 31-Oct-2024 60 Discovery 630 Stress: 31-Oct-2024 30 Discovery 630 0.4mg Lexiscan. Supine position only as patient was unable to lay prone. SPECT RESULTS Technical Quality: Good Raw Data Analysis: Normal Image Corrections: No attenuation or motion correction applied Summed Stress Score: 0 Summed Rest Score: 0 Summed Difference Score: 0 PERFUSION FINDINGS SPECT images demonstrate homogeneous tracer distribution throughout the myocardium. FUNCTIONAL RESULTS (calculated via Gated SPECT) Stress Image LV EF (%): 71 Stress EDV (mL):90 TID: 0.98 Stress ESV (mL):26 FUNCTIONAL FINDINGS: There is normal left ventricular systolic function. IMPRESSIONS Myocardial perfusion imaging is normal. Normal left ventricular systolic function, EF 71%. Quentin Moralez MD, FACC (Electronically Signed) Final Date: 31 October 2024 17:49 S
[2024-10-31] MEDS: ondansetron 2 mg/ML SDV 2 mL 4 MG IVP (09:49)
[2024-10-31 09:58] VITALS: BP 142/80; PULSE 82
--- NOTE | 2024-10-31 10:36 | MR_ITS ---
WS: [id number] MRI LUMBAR SPINE NONCONTRAST HISTORY: Low back pain with bilateral lower extremity sciatica. COMPARISON: None available. TECHNIQUE: Sagittal and axial multisequence imaging is submitted. Prior anterior cervical fusion from C4 through C6. 2 mm retrolisthesis of L4. Small amount of marrow edema along the endplates of L4 and L5 on the RIGHT. No acute fractures. Very minimal disc space narrowing and desiccation. Conus terminates normally at L1-2 disc level. L1-L2: Normal. L2-L3: Mild annular disc bulging and mild facet arthritis. No significant stenosis. L3-L4: Mild annular disc bulging. Very mild osteophytic ridging and facet arthritis. No significant in stenosis. L4-L5: Moderate annular disc bulging with mild osteophytic ridging. Broad-based RIGHT foraminal disc protrusion is in contact with the exiting RIGHT L4 nerve root. There is mild disc contact on the traversing L5 nerve roots, RIGHT greater than LEFT. Very mild central and subarticular recess stenosis. Moderate RIGHT foraminal stenosis. L5-S1: Mild annular disc bulging. Mild facet joint arthritis. Paravertebral soft tissues are unremarkable. MR/MR lumbar spine wo con* [id number] IMPRESSION: 1. L4 anterolisthesis by 2 mm. 2. Moderate annular disc bulging at L4-5 with a broad-based RIGHT foraminal di sc protrusion in contact with the exiting RIGHT L4 nerve root. Moderate RIGHT f oraminal stenosis. 3. L4-5: Mild disc contact on the traversing L5 nerve roots resulting in mild central and subarticular recess stenosis. 4. Facet joint arthritis at L2-3, L3-4 and L5-S1 is mild.
== END 2024-10-31 08:07 | disposition home or self-care (01) ==
LOC: CDL 08:08
PROVIDERS: PCP Nurse Practitioner; Visit Provider Internal Medicine Cardiovascular Disease
DX: M51.362 Other intervertebral disc degeneration, lumbar region with discogenic back pain and lower extremity pain (principal); R07.9 Chest pain, unspecified; M48.061 Spinal stenosis, lumbar region without neurogenic claudication; M25.78 Osteophyte, vertebrae; M47.896 Other spondylosis, lumbar region; M51.16 Intervertebral disc disorders with radiculopathy, lumbar region; M51.379 Other intervertebral disc degeneration, lumbosacral region without mention of lumbar back pain or lower extremity pain; M47.817 Spondylosis without myelopathy or radiculopathy, lumbosacral region; M43.16 Spondylolisthesis, lumbar region
CPT/HCPCS: 36415; 72148; 78452; 93017; 96374; A9500; J2405; J2785

== ENCOUNTER → 2024-11-13 13:25 | Outpatient (BNVA) | payer MEDICARE, MEDICAID, SELFPAY | PROVIDERS: PCP Nurse Practitioner; Visit Provider Orthopaedic Surgery | DX: Z01.818 Encounter for other preprocedural examination (principal); M48.062 Spinal stenosis, lumbar region with neurogenic claudication; Z98.1 Arthrodesis status | CPT/HCPCS: 36415; 72040; 72110; 80053; 81003; 85025; 99214 ==

== ENCOUNTER 2024-11-26 11:31 | Day surgery (SDC) | payer MEDICARE, MEDICAID, SELFPAY ==
[2024-11-26] VITALS (10 sets, daily range): BP systolic 114–208; BP diastolic 68–121; PULSE 66–90; RESP 15–23; TEMP 36.1–36.8; O2SAT 95–100; BMI 36.5
--- NOTE | 2024-11-26 12:21 | W.PM.OPSUD ---
Surgery/Procedure H&P Update DATE OF PROCEDURE: November 26, 2024 DATE H&P PERFORMED: 11/13/24 H&P UPDATE INFORMATION: I have reviewed H&P completed within last 30 days, I have examined patient prior to procedure and No changes to prior documentation PREOP DIAGNOSIS: Lumbar stenosis with neurogenic claudication PLANNED PROCEDURE: Operation Date: 11/26/24 13:30 Proposed Procedures p Lumbar Spine Decompression Lumbar Decompression(Not Applicable) - Sam Orozco DO
--- NOTE | 2024-11-26 12:49 | ANES.PREANE2 ---
Pre-Anesthetic Assessment Height/Weight: Height 1.7 m Weight 105.687 kg Temp Pulse Resp BP Pulse Ox O2 Del Method 98 F 84 16 208/121 97 Room Air 11/26/24 11:53 11/26/24 11:53 11/26/24 11:53 11/26/24 11:53 11/26/24 11:53 11/26/24 11:53 Preop Diagnosis: Lumbar stenosis with neurogenic claudication Operation Date: 11/26/24 13:30 Proposed Procedures p Lumbar Spine Decompression Lumbar Decompression(Not Applicable) - Sam Orozco, DO Was Beta Eb taken within 24 hours: Yes Was Clonidine taken within 24 hours: N/A Last intake: Intake Last Liquid Date 11/25/24 Last Liquid Time 23:59 Last Solid Date 11/25/24 Last Solid Time 22:00 Social No alcohol and No tobacco quit smoking 6 years ago Exam alert and oriented x 3 Airway Submandibular: within normal limits Cervical ROM: within normal limits Mallampati: Class I Dentition: chipped History/ROS No significant history except as noted Pulmonary Chronic Obstructive Pulmonary Disease CV/HEM Hypertension Chronic Renal Insufficiency Hepatic None reported GI Gastroesophageal Reflux Disease Metabolic Diabetes Mellitus, Hyperlipidemia and Morbid Obesity Musc/skel Lower Back Pain Neuropsych claustriphobia Anesthetic Plan ASA status: 3 Anesthesia: General Risk of > 500 ml blood loss (7ml/kg in children): No Medications/Allergies Home Medications ?Medication ?Instructions ?Recorded ?Confirmed ?Last Taken ?Type ascorbic acid (vitamin C) 500 mg 500 mg PO BID 10/16/20 11/23/24 11/22/24 History tablet blood-glucose meter (SenzariTouch #1 ea 12/11/20 11/22/24 Unknown Rx Ultra2 Meter kit) cholecalciferol (vitamin D3) 125 125 mcg PO DAILY #1 cap 11/09/21 11/23/24 11/22/24 Rx mcg (5,000 unit) capsule fluticasone propionate 50 1 spray intranasal DAILY #16 grams 05/09/24 11/23/24 08/15/24 Rx mcg/actuation nasal spray,suspension (Flonase Allergy Relief) blood sugar diagnostic (OneTouch #50 ea 06/14/24 11/22/24 Unknown Rx Ultra Test strips) lancets 33 gauge (OneTouch Delica #100 ea 06/14/24 11/22/24 Unknown Rx Plus Lancet) aspirin 81 mg chewable tablet 81 mg PO DAILY 08/08/24 11/23/24 11/21/24 History ibuprofen 800 mg tablet (IBU) 800 mg PO TID 08/08/24 11/23/24 08/15/24 History Held on 08/21/24. Instructions: Resume on 08/22/24. Bone Growth Stimulator #1 ea 09/05/24 11/22/24 Unknown Rx albuterol sulfate 90 mcg/actuation 2 puff inhalation Q6H PRN 09/17/24 11/26/24 11/26/24 Rx aerosol inhaler shortness of breath or wheezing #8.5 grams budesonide 160 mcg-glycopyr 9 2 inh inhalation BID #10.7 grams 09/17/24 11/26/24 11/26/24 Rx mcg-formot 4.8 mcg/actuation HFA inhaler (Breztri Aerosphere) dapagliflozin propanediol 10 mg 10 mg PO QAM #30 tabs 09/17/24 11/23/24 11/22/24 Rx tablet (Farxiga) diclofenac sodium 1 % topical gel 2 g topical QID #100 grams 09/17/24 11/23/24 Unknown Rx (Voltaren Arthritis Pain) duloxetine 60 mg capsule,delayed 60 mg PO BID #60 caps 09/17/24 11/26/24 11/26/24 Rx release famotidine 20 mg tablet (Pepcid AC) 20 mg PO BID #60 tabs 09/17/24 11/26/24 11/26/24 Rx magnesium oxide 800 mg (2 x 400 mg magnesium) PO 09/17/24 11/23/24 11/22/24 Rx DAILY #180 tabs metformin 500 mg tablet,extended 2,000 mg (4 x 500 mg) PO DAILY 09/17/24 11/26/24 11/25/24 Rx release 24 hr #120 tabs metoprolol succinate 25 mg 25 mg PO DAILY #30 tabs 09/17/24 11/26/24 11/26/24 Rx tablet,extended release 24 hr (Toprol XL) potassium chloride 10 mEq 10 meq PO DAILY #30 tabs 09/17/24 11/26/24 11/26/24 Rx tablet,extended release(part/cryst) ropinirole 1 mg tablet 1 mg PO BID #60 tabs 09/17/24 11/26/24 11/26/24 Rx rosuvastatin 10 mg tablet 10 mg PO DAILY #30 tabs 09/17/24 11/26/24 11/26/24 Rx tizanidine 4 mg tablet (Zanaflex) 4 mg PO .at bedtime #30 tabs 09/17/24 11/26/24 11/25/24 Rx lisinopril 10 mg tablet 10 mg PO DAILY #30 tabs 09/23/24 11/26/24 11/25/24 Rx Disposable nebulizer circuit #1 ea 11/07/24 11/22/24 Unknown Rx ipratropium 0.5 mg-albuterol 3 mg 3 ml inhalation QID PRN wheezing 11/07/24 11/26/24 11/25/24 Rx (2.5 mg base)/3 mL nebulization #180 mL soln nebulizers (AeroEclipse II #1 ea 11/07/24 11/22/24 Unknown Rx Nebulizer) hydrocodone 5 mg-acetaminophen 325 1 tab PO Q6H pain 7 days #28 tabs 11/19/24 11/23/24 11/23/24 Rx mg tablet hydrocodone 5 mg-acetaminophen 325 1 - 2 tab PO .Q4-6H #40 tabs 11/26/24 Unknown Rx mg tablet Allergies Allergy/AdvReac Type Severity Reaction Status Date / Time No Known Allergies Allergy Verified 11/22/24 10:39 Current Medications Generic Name Dose Route Start Last Admin Trade Name Freq PRN Reason Stop Dose Admin Sodium Chloride 1,000 mls @ 30 mls/hr 11/26/24 11:45 11/26/24 12:07 Sodium Chloride 0.9% IV 11/27/24 11:44 30 mls/hr .Q24H PERI Administration [facility] Anesthesia Medical History Aortic stenosis, moderate Echo Jun, 2021 Obsessive behaviors Degenerative disc disease, lumbar Chronic back pain Diabetes Pneumonia due to COVID-19 virus History of nicotine use Chronic bronchitis, unspecified chronic bronchitis type Hyperlipemia, mixed Primary hypertension Surgical History History of fusion of cervical spine 08/20/24 at [facility] History of hysterectomy Family History Other Diabetes Hypertension Denies family history of Cancer Stroke Social History Smoking and tobacco/nicotine status: former use of tobacco/nicotine Second hand smoke exposure: No Alcohol intake: current Alcohol intake frequency: holidays/special occasions only Substance/Drug Use: unknown Adopted: No Caregiver/support person: No Lives independently: Yes Household members: spouse Housing: Manufactured/Mobile home Marital status: Number of children: 5 service: No Current occupational status: unemployed Do you think of yourself as: Straight/Heterosexual Current gender identity: Female Data Anesthesia Cardiac Studies: Echocardiogram 10/11/24 Sestamibi Stress Test (Cardiology) 10/31/24 Cardiac Event Monitor 09/12/24
[2024-11-26] MEDS: ceFAZolin 2,000 mg SDV 2000 MG IVP (12:59)
[2024-11-26] MEDS: lidocaine-epi 1% 20 mL INJ INJECTION (13:32)
--- NOTE | 2024-11-26 13:56 | PM.OP ---
Operative Report Date of procedure: November 26, 2024 Pre-op diagnosis: Lumbar stenosis with neurogenic claudication Post-op diagnosis: same Procedure done: L4/5 laminectomy with partial facetectomy Surgeon: Sam Orozco DO Estimated blood loss (mL): 5 Procedure: L4/5 laminectomy with partial facetectomy Patient is brought to the operative suite. After undergoing anesthesia they are placed in the prone position. All areas of impingement are well padded. Patient is then prepped and draped in the normal sterile fashion. A skin incision is made over the L4/5 level. This is confirmed under c-arm guidance. A series of dilators are passed and the tubular retractor is docked on the L4 lamina. A bovie is used to clear the soft tissue off the lamina and the L4/5 facet joint. A high speed bob is then used to perform the laminectomy and take down the medial aspect of the L 4/5 facet joint. A kerrison rongeure was then used to take down the remaining lamina and smooth the edge of the laminectomy up to the point where the ligamentum flavum attaches. Attention was then brought to the medial aspect of the facet joint. The remaining medial aspect of the superior and inferior aspect of the facet joint were taken down with the kerrison from the pedicle of L4 to L 5. The facet joint had significant hypertrophy. Attention was then brought to the Ligamentum Flavum. The ligament was taken down from the lamina of L4 to L5 and out medially to the remaining facet joint. The ligament was thick. The dura was then exposed. The dura was in good repair. The L4 nerve was then traced with a curette out the L4/5 foramen and found to be adequately decompressed. The L5 nerve was traced with a curette around the L5 pedicle. The lateral recess was opened with a kerrison helping to further decompress the L5 nerve. Wound is then irrigated copiously with saline and surgiflo is used to stop any bleeding. The tubular retractor is removed and the wound is closed with vicryl and monocryl suture. Steri strips were applied. A sterile dressing is then placed. Patient was then placed in the supine position and transferred to the PACU in stable condition.
[2024-11-26] MEDS: HYDROcodone-acetaminophen 5-325 mg Tablet 2 TAB PO (14:40)
--- NOTE | 2024-11-26 15:10 | ANE.PACU2 ---
Inpatient post-anesthesia follow up: Airway intact: Yes Vital signs: Temperature 98.3 F Pulse Rate 67 Respiratory Rate 18 Blood Pressure 119/73 Pulse Oximetry 95 Oxygen Delivery Me thod Room Air Oxygen Flow Rate 8 Fraction of Inspir ed Oxygen Hydration adequate: Yes Nausea and vomiting: No Pain level: 2 Mental status: Baseline
== END 2024-11-26 15:10 | disposition home or self-care (01) ==
PROVIDERS: PCP Nurse Practitioner; Visit Provider Orthopaedic Surgery
PROC: (CPT 63005; principal; 2024-11-26 13:20)
DX: M48.062 Spinal stenosis, lumbar region with neurogenic claudication (principal); J44.9 Chronic obstructive pulmonary disease, unspecified; E11.22 Type 2 diabetes mellitus with diabetic chronic kidney disease; I12.9 Hypertensive chronic kidney disease with stage 1 through stage 4 chronic kidney disease, or unspecified chronic kidney disease; N18.9 Chronic kidney disease, unspecified; E66.01 Morbid (severe) obesity due to excess calories; Z68.36 Body mass index [BMI] 36.0-36.9, adult; Z79.82 Long term (current) use of aspirin; Z79.84 Long term (current) use of oral hypoglycemic drugs; Z79.891 Long term (current) use of opiate analgesic; Z87.891 Personal history of nicotine dependence; E78.2 Mixed hyperlipidemia
CPT/HCPCS: 63047; 36416; 72020; 76000; 82962; J0690; J1100; J2250; J2405; J2704; J2710; J3010; J3490; J7030; J9999

== ENCOUNTER → 2024-12-11 14:06 | Outpatient (BNVA) | payer MEDICARE, MEDICAID, SELFPAY | PROVIDERS: PCP Nurse Practitioner; Visit Provider Nurse Practitioner | DX: E11.65 Type 2 diabetes mellitus with hyperglycemia (principal); E55.9 Vitamin D deficiency, unspecified | CPT/HCPCS: 80053; 80061; 81000; 82043; 83036; 84443 ==

== ENCOUNTER 2024-12-18 10:59 | Outpatient (CLI) | payer MEDICARE, MEDICAID, SELFPAY ==
--- NOTE | 2024-12-18 11:00 | MM_ITS ---
WS: [id number] BILATERAL 3D TOMOSYNTHESIS DIGITAL SCREENING MAMMOGRAPHY WITH CAD CLINICAL INFORMATION: SCREENING HISTORY: Screening mammogram. No current complaints. COMPARISON: 2023 TECHNIQUE: Bilateral CC and MLO views. FINDINGS: Scattered fibroglandular densities bilaterally. No suspicious focal mass, asymmetry, calcifications, or architectural distortion. No evidence of malignancy. A few incidental calcifications MM/MM scr tomosynthesis [id number] IMPRESSION: DENSITY: There are scattered areas of fibroglandular density. BI-RADS: 2 - Benign. FOLLOW UP: 1 Year Follow-up Recommend return to annual screening mammography.
== END 2024-12-18 11:00 | disposition home or self-care (01) ==
LOC: MOBLMAM 11:02
PROVIDERS: PCP Nurse Practitioner; Visit Provider Nurse Practitioner
DX: Z12.31 Encounter for screening mammogram for malignant neoplasm of breast (principal); R92.1 Mammographic calcification found on diagnostic imaging of breast; R92.323 Mammographic fibroglandular density, bilateral breasts
CPT/HCPCS: 77063; 77067

== ENCOUNTER → 2025-01-10 08:20 | Outpatient (BNVA) | payer MEDICARE, MEDICAID, SELFPAY | PROVIDERS: PCP Nurse Practitioner; Visit Provider Orthopaedic Surgery | DX: Z98.890 Other specified postprocedural states (principal) | CPT/HCPCS: 99024 ==

== ENCOUNTER → 2025-01-25 10:10 | Outpatient (BNVA) | payer MEDICARE, MEDICAID, SELFPAY | PROVIDERS: PCP Nurse Practitioner; Visit Provider Orthopaedic Surgery | DX: G56.22 Lesion of ulnar nerve, left upper limb (principal) | CPT/HCPCS: 99213 ==